=== PATIENT | male | born 1985 | race Two or more races ===

== ENCOUNTER 2024-08-09 21:38 | Emergency (ER) | payer MEDICAID, SELFPAY ==
[2024-08-09 21:56] VITALS: BP 147/99; PULSE 60; RESP 18; TEMP 37.2; O2SAT 99
--- NOTE | 2024-08-09 22:07 | XR_ITS ---
Examination: Abdomen sonogram, Limited Date and time of exam: August 09, 2024 10:25 PM Indications: Onset epigastric pain today, history gallstones Technique: Real-time sprague scale transabdominal sonographic images of the upper abdomen obtained. Findings: Cholelithiasis. Gallbladder wall 0.3 cm Common bile duct 0.5 cm Pancreatic head 2.5 cm Liver 20.5 cm fatty infiltration no focal liver lesions Normal hepatopedal portal venous oh Patent IVC Impression: Cholelithiasis, negative for cholecystitis Moderate hepatomegaly fatty liver
--- NOTE | 2024-08-09 22:07 | PD.EDRME ---
Rapid Medical Screening Exam RME Arrival date/time: 08/09/24 21:38 38 year old male present to ED for c/o of abd pain. hx of gallstones I have greeted and performed a focused initial assessment of this patient. A comprehensive ED assessment and evaluation of the patient, analysis of all test results, and completion of the medical decision making process will be conducted by additional ED providers. Chief Complaint: Abdominal Pain Time Seen by Provider: 08/09/24 21:51 Vital signs: Vital Signs Temperature 99 F 08/09/24 21:56 Pulse Rate 60 08/09/24 21:56 Respiratory Rate 18 08/09/24 21:56 Blood Pressure 147/99 H 08/09/24 21:56 Pulse Oximetry (%) 99 08/09/24 21:56 Oxygen Delivery Method Room Air 08/09/24 21:56
[2024-08-09] MEDS: KETOROLAC INJ 60 MG/2 ML VIAL 30 MG IM (22:17)
[2024-08-09] MEDS: ONDANSETRON ODT 4 MG TABRAP PO (22:18)
[2024-08-09 22:34] LABS: Basophils % (Auto) 1 % (0-2.5); Eosinophils # (Auto) 0.2 Thou/mm3 (0.0-0.5); Eosinophils % (Auto) 3 % (0-10); Hematocrit 45.9 % (41.0-53.0); Immature Granulocytes % (Auto) 0 % (0-0); Immature Granulocytes Auto 0.01 Thou/mm3 (0.00-0.00); Lymphocytes # (Auto) 1.2 Thou/mm3 (1.0-4.8); Lymphocytes % (Auto) 18 % (10-50); Mean Corpuscular HGB Conc 34.9 g/dl (31.0-37.0); Mean Corpuscular Hemoglobin 28.5 pg (25.0-35.0); Mean Corpuscular Volume 82 fL (80-100); Monocytes # (Auto) 0.7 Thou/mm3 (0.0-0.8); Monocytes % (Auto) 10 % (0-12); Neutrophils # (Auto) 4.6 Thou/mm3 (1.8-7.7); Neutrophils % (Auto) 69 % (37-80); Nucleated Red Blood Cell % 0 /100 WBC (0); Platelet Count 271 Thou/mm3 (140-440); RDW Standard Deviation 36.6 fL (35.1-43.9); Red Blood Count 5.62 Miln/mm3 (4.50-5.90); White Blood Count 6.7 Thou/mm3 (3.8-10.6)
--- NOTE | 2024-08-09 22:49 | EDNOTE_ITS ---
ED Abdominal Pain RME/HPI General Chief Complaint: Abdominal Pain Stated complaint: EPIGASTRIC PAIN Time seen by provider: 08/09/24 21:51 Arrival date/time: 08/09/24 21:38 RME / HPI RME / HPI narrative: 08/09/24 21:38 38 year old male present to ED for c/o of abd pain. hx of gallstones I have greeted and performed a focused initial assessment of this patient. A comprehensive ED assessment and evaluation of the patient, analysis of all test results, and completion of the medical decision making process will be conducted by additional ED providers. ------ Dr. Hanson?s Main ED Evaluation: 38yo male presents to the ED for a chief complaint of abdominal pain x this morning. Patient states he developed epigastric pain after eating this morning. Patient states he had one episode of vomiting without any blood or coffee-ground emesis. Patient states he had a hard bowel movement at 1700, reporting his second bowel movement after was more normal. Patient denies any current nausea. He denies any UTI symptoms, fever, chills or any other associated symptoms. No known allergies. Patient states he had similar symptoms 4 years ago, but did not seek treatment for it. Patient notes the injection he was given earlier here in the ED helped with his pain, but states he continues to have epigastric pain. Related Data Allergies Allergy/AdvReac Type Severity Reaction Status Date / Time No Known Allergies Allergy Verified 08/09/24 21:41 Review of Systems Review of Systems Systems Reviewed: All systems reviewed, normal except as documented Narrative Review of Systems: Gen: No fever, no chills, no weight loss EYES: No discharge, no visual changes, no pain HEENT: No ear pain, no congestion, no sore throat PULM: No shortness of breath, no cough, no congestion CV: No chest pain, no dyspnea on exertion, no palpitations GI: No nausea, + vomiting, no diarrhea, + pain, no constipation : No frequency, no urgency, no dysuria Musc/skel: No joint pain, no back pain Skin: No rash Psyc: No hallucinations, no depression Heme/Lymph: No easy bleeding or bruising tendencies Neuro: No weakness, no headache Past Medical History Past Medical History CARDIAC: Negative Congestive Heart Failure RESPIRATORY: Negative Chronic Obstructive Pulmonary Disease (COPD) GENITOURINARY: Negative Renal Disease ENDOCRINE: Negative Diabetes Mellitus Type 1 or Diabetes Mellitus Type 2 Social History SMOKING STATUS: Current every day smoker ED Exam Narrative Physical exam: GENERAL APPEARANCE: alert and oriented x 4, well-developed, well-nourished, no acute distress HEENT: Normocephalic, atraumatic; pupils equal, round, reactive to light; EOMI; mucous membranes pink, moist; oropharynx clear NECK: Supple LUNGS: CTABL; no wheezes, no rales, no rhonchi HEART: Regular rate, regular rhythm; normal S1, S2; no murmurs ABDOMEN: mildly distended; normal BS; soft, mild epigastric pain, no guarding, no rebound; no masses, no organomegaly, no hernia BACK: no CVA tenderness EXTREMITIES: atraumatic; no edema NEUROLOGIC: awake; alert and oriented x4; cranial nerves II-XII grossly intact; no focal sensory or motor deficits PSYCHIATRIC: appropriate mood and affect SKIN: warm, dry, normal color; no rashes Course Quality Measures none Orders Category Date Time Status US abdomen limited Stat Exams 08/09/24 22:07 Completed CBC Stat Lab 08/09/24 22:24 Completed CMP [Comprehensive Metabolic Panel] Stat Lab 08/09/24 22:24 Completed Lipase Stat Lab 08/09/24 22:24 Completed UA [Urinalysis] Stat Lab 08/09/24 22:50 Completed Urine Culture Stat Lab 08/09/24 22:50 Received HYDROcodone*/APAP 5/325 [[place] 5/325] Med 08/09/24 23:16 Discontinued 1 tab PO X1 ONE Ketorolac Inj [Toradol Inj] Med 08/09/24 22:07 Discontinued 30 mg IM X1 ONE Ondansetron Odt [Zofran Odt] Med 08/09/24 22:07 Discontinued 4 mg PO X1 ONE Vital Signs Vital signs: Vital Signs Temperature 99 F 08/09/24 21:56 Pulse Rate 60 08/09/24 21:56 Respiratory Rate 18 08/09/24 21:56 Blood Pressure 147/99 H 08/09/24 21:56 Pulse Oximetry (%) 99 08/09/24 21:56 Oxygen Delivery Method Room Air 08/09/24 21:56 Pulse ox is 99% on room air, which is normal according to my interpretation. Abdominal Pain MDM MDM Narrative MDM Narrative:: Scribe Attestation: 08/09/24 Vaishnavi Reece am scribing for and in the presence of Dr. Hanson. Patient data External records reviewed:: [facility] previous records (Per chart review, patient has no previous ED visits or admissions to this facility.) Clinical information provided by:: patient Social determinants that could affect healthcare access:: none Patient has the following chronic illnesses:: none How is presenting disease/condition affected by chronic disease/condition?: no chronic disease Evaluation data The following diagnostics were reviewed and interpreted by me:: lab results and radiology exam(s) Lab and/or radiology exams considered but not ordered:: none Interpretation Summary: CBC is normal, CMP including LFTs are normal, Lipase is normal, UA is unremarkable, according to my interpretation. --- [facility] Report Signed Patient: ARIELLE LUKE. Record#: [id number] Birthdate: 1985 Age/Sex: 38 / M Location: [facility] Attending Dr: Ordering Physician: Garcia Moreno PA-C Date of Service: 08/09/24 Procedure(s): US abdomen limited Accession Number(s): [id number] cc: Yeyo Chowdhury MD; NO PRIMARY/FAMILY,PHYSICIAN; Garcia Moreno PA-C~ Examination: Abdomen sonogram, Limited Date and time of exam: August 09, 2024 10:25 PM Indications: Onset epigastric pain today, history gallstones Technique: Real-time sprague scale transabdominal sonographic images of the upper abdomen obtained. Findings: Cholelithiasis. Gallbladder wall 0.3 cm Common bile duct 0.5 cm Pancreatic head 2.5 cm Liver 20.5 cm fatty infiltration no focal liver lesions Normal hepatopedal portal venous oh Patent IVC Impression: Cholelithiasis, negative for cholecystitis Moderate hepatomegaly fatty liver Dictated By: Yeyo Chowdhury MD Signed By: <Electronically signed by Yeyo Chowdhury MD in OV> 08/09/24 3037 Medications / Prescriptions Medications or Prescriptions considered but not ordered:: none Medication administrations:: Medication Administration History Discontinued Medications Hydrocodone Bitart/Acetaminophen (Hydrocodone/Apap 5/325 Tablet) 1 tab PO X1 ONE Stop: 08/09/24 23:17 Ketorolac Tromethamine (Ketorolac Inj 60 Mg/2 Ml Vial) 30 mg IM X1 ONE Stop: 08/09/24 22:08 Last Admin: 08/09/24 22:17 Dose: 30 mg Documented By: Ondansetron HCl (Ondansetron Odt 4 Mg Tabrap) 4 mg PO X1 ONE; Protocol Stop: 08/09/24 22:08 Last Admin: 08/09/24 22:18 Dose: 4 mg Documented By: see above Consultations Consultation(s) initiated? (list below): No Diagnosis Differential diagnosis abdominal pain: constipation, diverticulitis, pancreatitis and other (gastritis, cholelithiasis, cholecystitis) Most likely diagnosis given after review of the tests above:: see below Admission Indicated Admission indicated?: not indicated Admission Request Was there a request for admission?: No Disposition Plan Disposition Plan: Discharge Discharge Attestation Discharge Attestation: The patient and all family members were given an opportunity to ask questions and understood the discharge instructions. Discharge instructions specifically effects, indications for sooner follow up or return to the emergency department, and the expected course of current diagnosis. Patient condition: Stable Discharge Plan Plan Patient Disposition: HOME (Self Care) Prescriptions/Referrals Referrals: No Primary/Family,Physician [Primary Care Provider] - In 1 week Problem List Clinical Impression: Epigastric pain, Gallstones Patient/Caregiver Discharge Instructions Education Materials: ED Gallstones with Biliary Colic, ED Epigastric Pain (Uncertain Cause) Print Language: Danish Stand Alone Forms: [facility] Award Info., Patient Portal Info Letter
[2024-08-09 22:57] LABS: Alanine Aminotransferase 46 U/L (10-49); Albumin, Serum 4.9 gm/dL (3.5-5.0); Albumin/Globulin Ratio 1.4 (1.2-2.2); Alkaline Phosphatase 111 U/L (46-116); Anion Gap 7 (7-16); Aspartate Amino Transferase 29 U/L (0-34); BUN/Creatinine Ratio 13 Ratio (12-20); Bilirubin,Total 0.9 mg/dL (0.3-1.2); Blood Urea Nitrogen 10 mg/dL (9-23); Calcium 9.9 mg/dL (8.3-10.6); Calcium (Corrected) 9.9 mg/dL (8.5-10.1); Carbon Dioxide 28.2 mMol/L (20.0-31.0); Chloride 102 mMol/L (98-107); Creatinine (Component) 0.8 mg/dL (0.6-1.3); Globulin 3.5 gm/dL (2.3-3.5); Glucose 126 mg/dL (74-106); Lipase 29 U/L (12-53); Osmolality,Calculated 274 (275-295); Potassium 3.9 mMol/L (3.4-5.1); Sodium 137 mMol/L (136-145); Total Protein 8.4 gm/dL (5.7-8.2); eGFR > 60 See Note
[2024-08-09 22:58] LABS: Collection Type, Urine Voided; Squamous Epithelial Cell,Urine 0 /hpf (0-5)
[2024-08-09 23:15] LABS: Bilirubin,Urine Negative (Negative); Blood,Urine Negative (Negative); Clarity,Urine Clear (Clear/Hazy); Color,Urine Lt-Yellow (Lt Yel-Yel); Glucose, Urine Negative (Negative); Ketones,Urine Negative (Negative); Leukocyte Esterase,Urine Negative (Negative); Nitrite,Urine Negative (Negative); Protein,Urine Negative (Neg - Trace); RBC,Urine 3 /hpf (0-3); Specific Gravity,Urine 1.025 (1.001-1.035); Urobilinogen,Urine Negative mg/dL (0.0-1.0); WBC,Urine < 1 /hpf (0-5)
[2024-08-09] MEDS: HYDROcodone/APAP 5/325 TABLET 1 TAB PO (23:33)
[2024-08-09 23:34] VITALS: BP 138/76; PULSE 79; RESP 18; TEMP 36.6; O2SAT 100
== END 2024-08-09 23:37 | disposition home or self-care (01) ==
PROVIDERS: Physician Assistant; Emergency Provider Emergency Medicine
DX: K80.20 Calculus of gallbladder without cholecystitis without obstruction (principal)
CPT/HCPCS: 36415; 76705; 80053; 81001; 83690; 85025; 87086; 96372; 99284; J1885; Q0162; A9270

== ENCOUNTER 2024-08-10 06:44 | Inpatient (IN) | payer MEDICAID, SELFPAY ==
[2024-08-10] VITALS (17 sets, daily range): BP systolic 124–163; BP diastolic 71–103; PULSE 61–121; RESP 15–26; TEMP 36.2–37.2; O2SAT 93–99; BMI 26.6; BMI 27.2
--- NOTE | 2024-08-10 07:18 | EDNOTE_ITS ---
ED Abdominal Pain MACKENZIE/HPI General Chief Complaint: Abdominal Pain Stated complaint: ABD PAIN Time seen by provider: 08/10/24 07:11 Arrival date/time: 08/10/24 06:44 38-year-old male with past medical history of gallstones presents emergency department complaining of right upper quadrant abdominal pain with vomiting that is been ongoing since yesterday. Patient reports was seen in the ER yesterday and discharged home but returns today because pain has worsened and not improved. Source: patient Mode of arrival: ambulatory Limitations: no limitations ESTEBANE / HPI MD complaint: abdominal pain Onset (ago): day(s) Consistency: constant Location: RUQ Severity: severe Severity scale (1-10): 10 Quality: sharp Radiation: none Migration to: no migration Relieving factors: medication Exacerbating factors: nothing Associated symptoms: nausea and vomiting Treatments prior to arrival: prescription analgesics Related Data Allergies Allergy/AdvReac Type Severity Reaction Status Date / Time No Known Allergies Allergy Verified 08/09/24 21:41 Review of Systems Review of Systems Systems Reviewed: All systems reviewed, normal except as documented Constitutional Constitutional: Reports system reviewed and no additional complaints, except as documented, Denies body ache(s), Denies chills and Denies fever(s) Eyes Eyes: Reports system reviewed and no additional complaints, except as documented and Denies change in vision ENT Ears, Nose, Mouth, and Throat: Reports system reviewed and no additional complaints, except as documented, Denies disequilibrium, Denies dizziness, Denies sore throat and Denies vertigo Cardiovascular Cardiovascular: Reports system reviewed and no additional complaints, except as documented, Denies chest pain and Denies dyspnea Respiratory Respiratory: Reports system reviewed and no additional complaints, except as documented, Denies chest congestion, Denies cough and Denies dyspnea Gastrointestinal Gastrointestinal: Reports system reviewed and no additional complaints, except as documented, Reports abdominal pain, Reports nausea and Reports vomiting Musculoskeletal Musculoskeletal: Reports system reviewed and no additional complaints, except as documented, Denies abnormal gait and Denies arthralgias Integumentary/Breasts Skin/Breast: Reports system reviewed and no additional complaints, except as documented, Denies erythema, Denies rash and Denies wounds Neurologic Neurologic: Reports system reviewed and no additional complaints, except as documented, Denies abnormal gait, Denies disequilibrium, Denies dizziness and Denies vertigo Past Medical History Past Medical History CARDIAC: Negative Congestive Heart Failure RESPIRATORY: Negative Chronic Obstructive Pulmonary Disease (COPD) GENITOURINARY: Negative Renal Disease ENDOCRINE: Negative Diabetes Mellitus Type 1 or Diabetes Mellitus Type 2 Social History SMOKING STATUS: Never smoker ED Exam General Limitations: Present no limitations General appearance: Present alert and in no apparent distress Head Head exam: Present atraumatic Eye Eye exam: Present normal appearance, PERRL and EOMI ENT ENT exam: Present normal exam, normal oropharynx and mucous membranes moist Neck Neck exam: Present normal inspection, full ROM and trachea midline Chest Chest inspection: Present normal inspection and symmetric chest wall rise Respiratory Respiratory exam: Present normal lung sounds bilaterally Cardiovascular Cardiovascular exam: Present regular rate, normal rhythm and normal heart sounds Abdominal Exam Abdominal exam: Present soft, tenderness, guarding, normal bowel sounds and Alvarenga's sign Abdominal tenderness: Present RUQ Extremities Exam Extremities exam: Present normal inspection and full ROM Back Exam Back exam: Present normal inspection and full ROM Neurological Exam Neurological exam: Present alert, oriented X3 and CN II-XII intact Psychiatric Psychiatric exam: Present normal affect and normal mood Skin Skin exam: Present warm, dry, intact and normal color Course Quality Measures none Orders Category Date Time Status COVID-19 Screening Questionnaire NOW Care 08/10/24 11:34 Active Decision to Admit X1 Care 08/10/24 11:34 Active US gall bladder Stat Exams 08/10/24 09:20 Completed CBC Stat Lab 08/10/24 07:54 Completed CMP [Comprehensive Metabolic Panel] Stat Lab 08/10/24 07:54 Completed Lipase Stat Lab 08/10/24 07:54 Completed HYDROcodone/APAP 10/325 [[place] 10/325] Med 08/10/24 07:18 Discontinued 1 tab PO X1 ONE Metoclopramide Inj [Reglan Inj] Med 08/10/24 11:15 Discontinued 10 mg IM X1 ONE Ondansetron Odt [Zofran Odt] Med 08/10/24 07:18 Discontinued 4 mg PO X1 ONE Ondansetron Odt [Zofran Odt] Med 08/10/24 07:25 Discontinued 4 mg PO X1 ONE Vital Signs Vital signs: Vital Signs Temperature 98.5 F 08/10/24 07:06 Pulse Rate 61 08/10/24 07:06 Respiratory Rate 19 08/10/24 07:06 Blood Pressure 132/84 H 08/10/24 07:06 Pulse Oximetry (%) 99 08/10/24 07:06 Oxygen Delivery Method Room Air 08/10/24 07:06 99% room air within normal limits. Abdominal Pain MDM MDM Narrative MDM Narrative:: 38-year-old male with past medical history of gallstones presents emergency department complaining of right upper quadrant abdominal pain with vomiting that is been ongoing since yesterday. Patient reports was seen in the ER yesterday and discharged home but returns today because pain has worsened and not improved. CBC remarkable for leukocytosis 16.6 which was normal yesterdays labs. CMP was unremarkable for any elevated liver enzymes. Ultrasound findings cholelithiasis with enlarged common bile duct. Dr Box consulted and recommends no need for MRCP reports will admit patient for cholecystectomy. Patient is stable condition at time of admission. Patient data External records reviewed:: [facility] previous records Clinical information provided by:: patient Social determinants that could affect healthcare access:: none Patient has the following chronic illnesses:: See chart How is presenting disease/condition affected by chronic disease/condition?: exacerbated by Evaluation data The following diagnostics were reviewed and interpreted by me:: lab results and radiology exam(s) Lab and/or radiology exams considered but not ordered:: Ordered Interpretation Summary: Interpreted by me Medications / Prescriptions Medications or Prescriptions considered but not ordered:: Ordered Medication administrations:: Medication Administration History Discontinued Medications Hydrocodone Bitart/Acetaminophen (Hydrocodone/Apap 10/325 Tab) 1 tab PO X1 ONE Stop: 08/10/24 07:19 Last Admin: 08/10/24 07:29 Dose: 1 tab Documented By: EF Metoclopramide HCl (Metoclopramide Inj 5 Mg/Ml Vial 2 Ml) 10 mg IM X1 ONE; Protocol Stop: 08/10/24 11:16 Last Admin: 08/10/24 11:22 Dose: 10 mg Documented By: EF Ondansetron HCl (Ondansetron Odt 4 Mg Tabrap) 4 mg PO X1 ONE; Protocol Stop: 08/10/24 07:19 Last Admin: 08/10/24 08:52 Dose: Not Given Documented By: EF Non-Admin Reason: Duplicate Medication on eMAR Ondansetron HCl (Ondansetron Odt 4 Mg Tabrap) 4 mg PO X1 ONE; Protocol Stop: 08/10/24 07:26 Last Admin: 08/10/24 07:30 Dose: 4 mg Documented By: EF Given Consultations Consultation(s) initiated? (list below): Yes Consultation #1 (Physician, Specialty, Details): Dr. Box Diagnosis Differential diagnosis abdominal pain: abdominal pain and other (Cholecystitis) Most likely diagnosis given after review of the tests above:: Cholelithiasis Admission Indicated Admission indicated?: not indicated Admission Request Was there a request for admission?: Yes Admission Attestation Admission request attestation: Discussed case with [Dr. Box] from Hospitalist service regarding admission. Discussed patients ED course, exam findings, labs, and radiology results. Dr. Box [agrees,] to accept the patient for admission. Disposition Plan Disposition Plan: Admit Discharge Plan Plan Patient Disposition: Admit Acute Care w/in Hospital Disposition Comment: Stable Prescriptions/Referrals Referrals: Sariah Castelan NP [Primary Care Provider] - In 1 week Problem List Clinical Impression: Cholelithiasis Patient/Caregiver Discharge Instructions Print Language: Welsh Stand Alone Forms: [facility] Award Info., Patient Portal Info Letter PA/PEST CONTROL SERVICE TECHNICIAN Supervising Physician PA/YU Supervising Physician: Dr. Flanagan
[2024-08-10] MEDS: HYDROcodone/APAP 10/325 TAB PO (07:29)
[2024-08-10] MEDS: ONDANSETRON ODT 4 MG TABRAP PO (07:30)
[2024-08-10 08:17] LABS: Basophils # (Auto) 0.1 Thou/mm3 (0.0-0.2); Basophils % (Auto) 0 % (0-2.5); Eosinophils % (Auto) 0 % (0-10); Hematocrit 46.1 % (41.0-53.0); Immature Granulocytes % (Auto) 0 % (0-0); Immature Granulocytes Auto 0.06 Thou/mm3 (0.00-0.00); Lymphocytes # (Auto) 0.6 Thou/mm3 (1.0-4.8); Lymphocytes % (Auto) 4 % (10-50); Mean Corpuscular HGB Conc 34.7 g/dl (31.0-37.0); Mean Corpuscular Hemoglobin 28.9 pg (25.0-35.0); Mean Corpuscular Volume 83 fL (80-100); Monocytes # (Auto) 0.8 Thou/mm3 (0.0-0.8); Monocytes % (Auto) 5 % (0-12); Neutrophils # (Auto) 15.1 Thou/mm3 (1.8-7.7); Neutrophils % (Auto) 91 % (37-80); Nucleated Red Blood Cell % 0 /100 WBC (0); Platelet Count 284 Thou/mm3 (140-440); RDW Standard Deviation 37.3 fL (35.1-43.9); Red Blood Count 5.54 Miln/mm3 (4.50-5.90); White Blood Count 16.6 Thou/mm3 (3.8-10.6)
[2024-08-10 08:34] LABS: Alanine Aminotransferase 45 U/L (10-49); Albumin/Globulin Ratio 1.5 (1.2-2.2); Alkaline Phosphatase 99 U/L (46-116); Anion Gap 7 (7-16); Aspartate Amino Transferase 28 U/L (0-34); BUN/Creatinine Ratio 16 Ratio (12-20); Bilirubin,Total 1.2 mg/dL (0.3-1.2); Blood Urea Nitrogen 13 mg/dL (9-23); Chloride 101 mMol/L (98-107); Creatinine (Component) 0.8 mg/dL (0.6-1.3); Estimated Creatinine Clearance 123.5 mL/min (>60); Globulin 3.3 gm/dL (2.3-3.5); Glucose 139 mg/dL (74-106); Lipase 25 U/L (12-53); Osmolality,Calculated 274 (275-295); Potassium 3.8 mMol/L (3.4-5.1); Sodium 136 mMol/L (136-145); Total Protein 8.3 gm/dL (5.7-8.2); eGFR > 60 See Note
--- NOTE | 2024-08-10 09:20 | XR_ITS ---
Examination: Abdomen sonogram, Limited Date and time of exam: August 10, 2024 0938 hrs. Indications: Right upper abdominal pain and vomiting beginning today Technique: Real-time sprague scale transabdominal sonographic images of the upper abdomen obtained. Findings: Multiple gallstones Gallbladder wall 0.3 cm no edema Common bile duct 0.6 cm no definite stones Pancreatic head 3.0 cm Liver 18.6 cm fatty infiltration no focal liver lesions Normal hepatopedal portal venous flow Patent IVC Impression: Cholelithiasis Enlarged common bile duct for patient of this age, consider MRCP follow-up to exclude common bile duct stones
[2024-08-10] MEDS: METOCLOPRAMIDE INJ 5 MG/ML VIAL 2 ML 10 MG IM (11:22)
--- NOTE | 2024-08-10 11:52 | ESHP_ITS ---
HPI HPI Spoke to patient with in person historical interpreter 38M presenting with abdominal pain and nausea. Patient reports pain began yesterday, he sought care at that time and was discharged with cholelithiasis however because symptoms worsened he returned to ER. Patient reports pain is severe in the epigastric/right upper quadrant region, associated with nausea. Patient states he had similar pain a few years ago but never underwent a workup. Ultrasound shows gallstones, no wall thickening however patient has leukocytosis and his pain has not abated PMH: Pre-DM PSH: None Meds: Naproxen as needed Allergies: NKDA Social history: Non-smoker Review of Systems Review of Systems ROS Unobtainable: All systems reviewed & no additional complaints except as documented ENT Ears, Nose, Mouth, and Throat: Denies disequilibrium, Denies dizziness and Denies vertigo Musculoskeletal Musculoskeletal: Denies abnormal gait Neurologic Neurologic: Reports system reviewed and no additional complaints, except as documented, Denies abnormal gait, Denies disequilibrium, Denies dizziness and Denies vertigo Meds Home Medications and Allergies Allergies Allergy/AdvReac Type Severity Reaction Status Date / Time No Known Allergies Allergy Verified 08/09/24 21:41 Exam Vital Signs Temp Pulse Resp BP Pulse Ox O2 Del Method 98.9 F 78 17 134/79 H 97 Room Air 08/10/24 09:09 08/10/24 09:09 08/10/24 09:09 08/10/24 09:09 08/10/24 09:09 08/10/24 09:09 Constitutional Constitutional: no acute distress Routine Respiratory Exam Respiratory: Present no resp distress Routine Abdominal Exam Abdominal: Present soft and tenderness (Positive Alvarenga sign); Absent distended, rebound or guarding Results Results: Laboratory Laboratory results: results reviewed Results: Imaging US - abdomen: report reviewed Assessment & Plan Plan 38M presenting with signs and symptoms of early acute cholecystitis. I explained benefits/risks of procedure including need for conversion to open, bleeding, infection, injury to nearby structures requiring further procedures or surgery would require transfer to another center. All questions were answered and patient agrees to proceed Quality Measures Quality Measures none
[2024-08-10] MEDS: PIPER/TAZO 3.375 GM 3.375 GM/50 ML BAG IV (12:52)
[2024-08-10] MEDS: SODIUM CHLORIDE 0.9% 1000 ML 1,000 ML 125 ML IV (12:53)
--- NOTE | 2024-08-10 13:15 | PC.NURSE ---
Addendum entered by Ana Tejada RN 08/10/24 13:47: Patient arrived on floor at 13:15 Original Note: Patient arrived on floor at
--- NOTE | 2024-08-10 14:03 | PC.NURSE ---
Patient leaving the floor for surgery. Will admit him when he comes back on the floor.
--- NOTE | 2024-08-10 15:40 | PD.SUROPNT ---
Date of Procedure 08/10/24 Pre Op Diagnosis Early acute cholecystitis Post Op Diagnosis Same Procedure Laparoscopic cholecystectomy Findings Inflamed gallbladder with numerous stones Procedure Description After discussion of risks and benefits, patient was brought to the operating room, SCDs were placed and general anesthesia was induced. He had already received preoperative antibiotics and was prepped and draped in the usual sterile fashion. After timeout a supraumbilical incision was made and the tissues were elevated. A Veress needle was placed through the incision and proper positioning was confirmed with a drop test. At that point the abdomen was insufflated to 15 mmHg. The Veress needle was then exchanged for a 5 mm camera using a Visiport technique. There were no signs of injury from the point of entry. 3 additional ports were placed under direct vision, one 12 mm epigastrium, one 5 mm right subcostal and one 5 mm right anterior axillary line. Patient was placed in reversed Trendelenburg with left side down. The gallbladder was noted to be firm and difficult to grasp so it was first aspirated with return of approximately 100 cc of green bile. The fundus of the gallbladder was then grasped and retracted cephalad and the infundibulum was grasped and retracted laterally. Dissection was undertaken bluntly, it was somewhat difficult given the amount of inflammation and fat encasing the cystic triangle. Ultimately the critical view of safety was achieved and the cystic duct and cystic artery were clipped and transected in the usual fashion. Of note there were was a small accessory artery posterior to the gallbladder which was clipped and transected in the usual fashion. The gallbladder was removed from the gallbladder bed using electrocautery. Hemostasis of the gallbladder bed was achieved with electrocautery and reinforced with Surgicel powder. The specimen was removed in an Endo Catch bag via the epigastric port, and the epigastric fascia was closed with 0 Vicryl suture using a Baltazar-Lana. Pneumoperitoneum was released while the remaining ports were removed under direct vision. Incisions were irrigated and infiltrated with half percent Marcaine for a total of 30 cc. Incisions were closed with 4 Monocryl and reinforced with Dermabond. Patient was extubated and brought to PACU in stable condition Pathology / specimen Other (Gallbladder) Estimated Blood Loss 50 Surgeon Nieves Box MD Surgical Staff Operation Date: 08/10/24 14:15 Case Staff Anesthesiologist: Luis Manuel High RNterra cotta roofer: Claus Neely
--- NOTE | 2024-08-10 15:58 | SUR.PHASEI ---
pt received from OR in recovery bay 1. pt obtunded, breathing labored on 10l oxymask, nasal airway in place. v/s stable. pt dressing to abd dermabond x4 ports cdi. report received from Dr. High and Fred SANTOYO.
[2024-08-10] MEDS: ONDANSETRON INJ 2 MG/ML INJ 2 ML 4 MG IV (16:31)
--- NOTE | 2024-08-10 16:50 | PC.NURSE ---
Patient back on floor from surgery. Will continue to monitor patient.
--- NOTE | 2024-08-10 16:50 | SUR.PHASEII ---
pt asleep but responds to voice, breathing unlabored on 2l nc. v/s stable. pt dressing to abd dermabond x4 cdi. report called to Neida SANTOYO. pt will be transferred to room at this time.
[2024-08-10] MEDS: ACETAMINOPHEN 325 MG TABLET 650 MG PO (19:37)
[2024-08-10] MEDS: HYDROcodone/APAP 5/325 TABLET 1 TAB PO (21:17)
[2024-08-11] VITALS: BP 124/67; PULSE 75; PULSE 96; RESP 18; TEMP 36.6; O2SAT 96
[2024-08-11 04:00] VITALS: BP 127/77; PULSE 77; RESP 18; TEMP 36.6; O2SAT 95
[2024-08-11 06:16] LABS: Basophils % (Auto) 0 % (0-2.5); Eosinophils % (Auto) 0 % (0-10); Hemoglobin 14.2 g/dL (13.5-16.0); Immature Granulocytes % (Auto) 0 % (0-0); Immature Granulocytes Auto 0.06 Thou/mm3 (0.00-0.00); Lymphocytes # (Auto) 0.7 Thou/mm3 (1.0-4.8); Lymphocytes % (Auto) 4 % (10-50); Mean Corpuscular HGB Conc 33.8 g/dl (31.0-37.0); Mean Corpuscular Hemoglobin 28.5 pg (25.0-35.0); Mean Corpuscular Volume 84 fL (80-100); Monocytes # (Auto) 1.3 Thou/mm3 (0.0-0.8); Monocytes % (Auto) 8 % (0-12); Neutrophils # (Auto) 13.9 Thou/mm3 (1.8-7.7); Neutrophils % (Auto) 87 % (37-80); Nucleated Red Blood Cell % 0 /100 WBC (0); Platelet Count 266 Thou/mm3 (140-440); RDW Standard Deviation 38.4 fL (35.1-43.9); Red Blood Count 4.98 Miln/mm3 (4.50-5.90)
[2024-08-11 07:03] LABS: Alanine Aminotransferase 129 U/L (10-49); Albumin, Serum 4.6 gm/dL (3.5-5.0); Albumin/Globulin Ratio 1.5 (1.2-2.2); Alkaline Phosphatase 82 U/L (46-116); Anion Gap 10 (7-16); Aspartate Amino Transferase 86 U/L (0-34); BUN/Creatinine Ratio 16 Ratio (12-20); Bilirubin,Total 2.4 mg/dL (0.3-1.2); Blood Urea Nitrogen 11 mg/dL (9-23); Calcium 9.9 mg/dL (8.3-10.6); Calcium (Corrected) 9.9 mg/dL (8.5-10.1); Carbon Dioxide 27.7 mMol/L (20.0-31.0); Chloride 100 mMol/L (98-107); Creatinine (Component) 0.7 mg/dL (0.6-1.3); Estimated Creatinine Clearance 136.4 mL/min (>60); Glucose 130 mg/dL (74-106); Magnesium 1.8 mg/dL (1.6-2.6); Osmolality,Calculated 277 (275-295); Phosphorous 3.8 mg/dL (2.4-5.1); Potassium 3.6 mMol/L (3.4-5.1); Sodium 138 mMol/L (136-145); Total Protein 7.6 gm/dL (5.7-8.2); eGFR > 60 See Note
[2024-08-11 08:00] VITALS: BP 123/63; PULSE 72; RESP 17; TEMP 36.8; O2SAT 97
[2024-08-11] MEDS: HYDROcodone/APAP 5/325 TABLET 1 TAB PO (09:48)
[2024-08-11] MEDS: SODIUM CHLORIDE 0.9% 1000 ML 1,000 ML 80 ML IV (09:49)
[2024-08-11 12:00] VITALS: BP 136/63; PULSE 79; RESP 17; TEMP 36.6; O2SAT 94
--- NOTE | 2024-08-11 13:12 | PD.SURPROG ---
Documentation for date of: 08/11/24 Subjective Subjective Brief History: Spoke to patient with in person sign language interpreter 38M presenting with abdominal pain and nausea. Patient reports pain began yesterday, he sought care at that time and was discharged with cholelithiasis however because symptoms worsened he returned to ER. Patient reports pain is severe in the epigastric/right upper quadrant region, associated with nausea. Patient states he had similar pain a few years ago but never underwent a workup. Ultrasound shows gallstones, no wall thickening however patient has leukocytosis and his pain has not abated PMH: Pre-DM PSH: None Meds: Naproxen as needed Allergies: NKDA Social history: Non-smoker Narrative: Spoke to patient with phone sign language interpreter Patient reports feeling well, overall he has minimal pain which is controlled with medications. He denies nausea, tolerating liquid diet. T. bili 2.4 from 1.2, MRCP pending Exam Vital Signs Temp Pulse Resp BP Pulse Ox O2 Del Method O2 Flow Rate 97.8 F 79 17 136/63 H 94 L Room Air 1 08/11/24 12:00 08/11/24 12:00 08/11/24 12:00 08/11/24 12:00 08/11/24 12:00 08/11/24 12:00 08/11/24 08:00 Constitutional Constitutional: no acute distress Routine Respiratory Exam Respiratory: Present no resp distress Routine Abdominal Exam Abdominal: Present soft and wound (Incisions clean dry intact, no erythema or fluctuance); Absent tenderness or distended Results Results: Laboratory Laboratory results: results reviewed Assessment & Plan Plan 38M who presented with signs and symptoms of early acute cholecystitis, status post lap cheko 08/10, with increase in bilirubin awaiting MRCP FLD N.p.o. after midnight for MRCP Trend LFTs Procedures Procedures Laparoscopic cholecystectomy
--- NOTE | 2024-08-11 13:18 | PC.SS ---
Gautam Cueto is a 38-year-old male admitted to [facility] for Acute Ally. SS conducted bedside contact with the patient to complete initial assessment and to discuss discharge planning. Patient confirmed demographic information. Patient identifies his Deana Lindo [phone] as his surrogate decision maker. Patient resides at home with his and children. Pt states he is able to complete all ADL?s independently, no need for any source of DME. Pts PCP is Dr. Diaz at [facility] on [address] and pharmacy of choice is [email or web address]. DC option discussed and pt wishes to return home. Pts will provide transportation upon DC. No further intervention required at this time, health care social worker would be available to address any further concerns.
[2024-08-11 16:00] VITALS: BP 138/80; PULSE 90; RESP 16; TEMP 36.6; O2SAT 93
--- NOTE | 2024-08-11 16:18 | PC.SS ---
Rounding: Pending MRCP
[2024-08-11] MEDS: ACETAMINOPHEN 325 MG TABLET 650 MG PO (18:46)
[2024-08-11 20:00] VITALS: BP 138/78; PULSE 86; RESP 16; TEMP 37; O2SAT 92
[2024-08-12] VITALS: BP 130/76; PULSE 91; RESP 16; TEMP 36.3; O2SAT 94
--- NOTE | 2024-08-12 | XR_ITS ---
MRI abdomen, without contrast. MRCP Date and time of exam: August 12, 2024 1646 hrs. Indications: Postop cholecystectomy with worsening abdominal pain Technique: Multiple axial and coronal images of the abdomen have been obtained with the Siemens 1.5T MRI scanner. Images obtained included T1 weighted transverse images, T2-weighted transverse images, T2-weighted transverse images fat-suppressed, T2 weighted haste fat suppressed transverse images, T1 weighted images, in and out of phase images, T2-weighted coronal images, breath hold, T2 weighted haze coronal images as well as T2 weighted coronal thick slab images, MRCP. Findings: Substantial fluid collection in the gallbladder fossa, at least 9 x 6 x 5 mm contiguous with the cystic duct No common hepatic or common bile duct stones Negative for pancreatitis No hydronephrosis Aorta normal size No splenomegaly Impression: Findings most consistent with biliary leak Recommend HIDA scan follow-up
[2024-08-12] MEDS: ACETAMINOPHEN 325 MG TABLET 650 MG PO ×2 (00:34→20:10)
[2024-08-12 04:00] VITALS: BP 139/74; PULSE 83; RESP 16; TEMP 36.4; O2SAT 93
[2024-08-12 05:51] LABS: Basophils % (Auto) 0 % (0-2.5); Eosinophils # (Auto) 0.1 Thou/mm3 (0.0-0.5); Eosinophils % (Auto) 1 % (0-10); Hematocrit 41.3 % (41.0-53.0); Immature Granulocytes % (Auto) 0 % (0-0); Immature Granulocytes Auto 0.03 Thou/mm3 (0.00-0.00); Lymphocytes # (Auto) 1.1 Thou/mm3 (1.0-4.8); Lymphocytes % (Auto) 12 % (10-50); Mean Corpuscular HGB Conc 33.9 g/dl (31.0-37.0); Mean Corpuscular Hemoglobin 28.5 pg (25.0-35.0); Mean Corpuscular Volume 84 fL (80-100); Monocytes % (Auto) 10 % (0-12); Neutrophils # (Auto) 7.4 Thou/mm3 (1.8-7.7); Neutrophils % (Auto) 77 % (37-80); Nucleated Red Blood Cell % 0 /100 WBC (0); Platelet Count 239 Thou/mm3 (140-440); RDW Standard Deviation 38.5 fL (35.1-43.9); Red Blood Count 4.91 Miln/mm3 (4.50-5.90); White Blood Count 9.6 Thou/mm3 (3.8-10.6)
[2024-08-12 06:44] LABS: Alanine Aminotransferase 97 U/L (10-49); Albumin, Serum 4.4 gm/dL (3.5-5.0); Albumin/Globulin Ratio 1.5 (1.2-2.2); Alkaline Phosphatase 85 U/L (46-116); Anion Gap 9 (7-16); Aspartate Amino Transferase 49 U/L (0-34); BUN/Creatinine Ratio 16 Ratio (12-20); Bilirubin,Total 2.7 mg/dL (0.3-1.2); Blood Urea Nitrogen 11 mg/dL (9-23); Calcium 9.6 mg/dL (8.3-10.6); Calcium (Corrected) 9.6 mg/dL (8.5-10.1); Carbon Dioxide 28.9 mMol/L (20.0-31.0); Chloride 99 mMol/L (98-107); Creatinine (Component) 0.7 mg/dL (0.6-1.3); Estimated Creatinine Clearance 136.4 mL/min (>60); Globulin 2.9 gm/dL (2.3-3.5); Glucose 110 mg/dL (74-106); Osmolality,Calculated 274 (275-295); Potassium 3.6 mMol/L (3.4-5.1); Sodium 137 mMol/L (136-145); Total Protein 7.3 gm/dL (5.7-8.2); eGFR > 60 See Note
[2024-08-12 07:46] VITALS: BP 136/79; PULSE 90; RESP 18; TEMP 36.6; O2SAT 92
[2024-08-12 12:00] VITALS: BP 132/72; PULSE 78; RESP 18; TEMP 37.3; O2SAT 92
[2024-08-12] MEDS: SODIUM CHLORIDE 0.9% 1000 ML 1,000 ML 80 ML IV (12:41)
[2024-08-12] MEDS: KETOROLAC INJ 30 MG/ML VIAL 15 MG IVP (15:57)
[2024-08-12 16:00] VITALS: BP 134/77; PULSE 81; RESP 19; TEMP 36.7; O2SAT 96
--- NOTE | 2024-08-12 16:51 | ESPR_ITS ---
Documentation for date of: 08/12/24 Subjective Subjective Brief History: Spoke to patient with in person registered midwife 38M presenting with abdominal pain and nausea. Patient reports pain began yesterday, he sought care at that time and was discharged with cholelithiasis however because symptoms worsened he returned to ER. Patient reports pain is severe in the epigastric/right upper quadrant region, associated with nausea. Patient states he had similar pain a few years ago but never underwent a workup. Ultrasound shows gallstones, no wall thickening however patient has leukocytosis and his pain has not abated PMH: Pre-DM PSH: None Meds: Naproxen as needed Allergies: NKDA Social history: Non-smoker Narrative: Tbili 2.7 from 2.4, remaining afebrile, mild RUQ pain radiating to back controlled with medications, no nausea, MRCP pending Exam Vital Signs Temp Pulse Resp BP Pulse Ox O2 Del Method O2 Flow Rate 98.1 F 81 19 134/77 H 96 Nasal Cannula 1 08/12/24 16:00 08/12/24 16:00 08/12/24 16:00 08/12/24 16:00 08/12/24 16:00 08/12/24 16:00 08/12/24 16:00 Constitutional Constitutional: no acute distress Routine Respiratory Exam Respiratory: Present no resp distress Results Results: Laboratory Laboratory results: results reviewed Assessment & Plan Plan 38M who presented with signs and symptoms of early acute cholecystitis, status post lap cheko 08/10, with increase in bilirubin awaiting MRCP F/u MRCP, trend LFTs Resume FLD after MRCP Procedures Procedures Laparoscopic cholecystectomy
[2024-08-12 20:00] VITALS: BP 119/76; PULSE 88; RESP 18; TEMP 36.8; O2SAT 92
[2024-08-13] VITALS: BP 132/84; PULSE 76; RESP 18; TEMP 36.6; O2SAT 93
[2024-08-13] MEDS: KETOROLAC INJ 30 MG/ML VIAL 15 MG IVP (01:18)
[2024-08-13] MEDS: SODIUM CHLORIDE 0.9% 1000 ML 1,000 ML 80 ML IV (02:12)
[2024-08-13 04:00] VITALS: BP 132/81; PULSE 60; RESP 18; TEMP 36.6; O2SAT 96
[2024-08-13 06:10] LABS: Basophils % (Auto) 0 % (0-2.5); Eosinophils # (Auto) 0.3 Thou/mm3 (0.0-0.5); Eosinophils % (Auto) 3 % (0-10); Hematocrit 41.3 % (41.0-53.0); Immature Granulocytes % (Auto) 0 % (0-0); Immature Granulocytes Auto 0.03 Thou/mm3 (0.00-0.00); Lymphocytes # (Auto) 0.9 Thou/mm3 (1.0-4.8); Lymphocytes % (Auto) 12 % (10-50); Mean Corpuscular HGB Conc 33.9 g/dl (31.0-37.0); Mean Corpuscular Hemoglobin 28.3 pg (25.0-35.0); Mean Corpuscular Volume 84 fL (80-100); Monocytes # (Auto) 0.9 Thou/mm3 (0.0-0.8); Monocytes % (Auto) 12 % (0-12); Neutrophils # (Auto) 5.7 Thou/mm3 (1.8-7.7); Neutrophils % (Auto) 73 % (37-80); Nucleated Red Blood Cell % 0 /100 WBC (0); Platelet Count 235 Thou/mm3 (140-440); RDW Standard Deviation 36.9 fL (35.1-43.9); Red Blood Count 4.94 Miln/mm3 (4.50-5.90); White Blood Count 7.8 Thou/mm3 (3.8-10.6)
[2024-08-13 06:45] LABS: Alanine Aminotransferase 68 U/L (10-49); Albumin/Globulin Ratio 1.3 (1.2-2.2); Alkaline Phosphatase 91 U/L (46-116); Anion Gap 9 (7-16); Aspartate Amino Transferase 30 U/L (0-34); BUN/Creatinine Ratio 19 Ratio (12-20); Bilirubin,Total 2.3 mg/dL (0.3-1.2); Blood Urea Nitrogen 13 mg/dL (9-23); Calcium 9.5 mg/dL (8.3-10.6); Calcium (Corrected) 9.5 mg/dL (8.5-10.1); Carbon Dioxide 27.5 mMol/L (20.0-31.0); Chloride 101 mMol/L (98-107); Creatinine (Component) 0.7 mg/dL (0.6-1.3); Estimated Creatinine Clearance 136.4 mL/min (>60); Glucose 101 mg/dL (74-106); Osmolality,Calculated 273 (275-295); Potassium 3.8 mMol/L (3.4-5.1); Sodium 137 mMol/L (136-145); eGFR > 60 See Note
--- NOTE | 2024-08-13 07:01 | XR_ITS ---
Examination: KUSHAL, hepatobiliary radioisotope scan. Date and time of exam: August 13, 2024 0911 hours INDICATIONS: Status post cholecystectomy, abdominal pain, fluid collection in the gallbladder fossa on MRCP August 12, 2024 Technique: 6.4 mCi of 99M Hepatolite administered. Serial imaging then obtained from immediate through 60 minutes. Findings: Radioisotope activity within the liver is reasonably homogenous. Common bile duct small bowel activity noted Impression: Negative for biliary leak Radioisotope activity common bile duct and small bowel
[2024-08-13 07:40] VITALS: BP 135/78; PULSE 74; RESP 18; TEMP 37; O2SAT 96
[2024-08-13 11:37] VITALS: BP 135/77; PULSE 91; RESP 18; TEMP 36.8; O2SAT 94
[2024-08-13] MEDS: ACETAMINOPHEN 325 MG TABLET 650 MG PO (13:38)
--- NOTE | 2024-08-13 15:44 | ESDS_ITS ---
Planned Discharge Date 08/13/24 DS: Providers Provider Date of admission: 08/11/24 07:26 Primary care physician: Sariah Castelan NP Admitting Provider: Nieves Box MD Attending Provider on Admission: Nieves Box MD Attending Provider on DC: Nieves Box MD Discharging Provider: Nieves Box MD Diagnosis Discharge Diagnosis (1) Acute cholecystitis: Status: Acute Problem List Completed Was Problem List Reviewed/Reconciled?: Yes Hospital Course Brief History: Spoke to patient with in person metal drawer 38M presenting with abdominal pain and nausea. Patient reports pain began yesterday, he sought care at that time and was discharged with cholelithiasis however because symptoms worsened he returned to ER. Patient reports pain is severe in the epigastric/right upper quadrant region, associated with nausea. Patient states he had similar pain a few years ago but never underwent a workup. Ultrasound shows gallstones, no wall thickening however patient has leukocytosis and his pain has not abated PMH: Pre-DM PSH: None Meds: Naproxen as needed Allergies: NKDA Social history: Non-smoker Pt underwent laparoscopic cholecystectomy 08/10. Postoperatively he was noted to have hyperbilirubinemia and remained hospitalized for biliary workup which was negative for biliary injury. Pt recovered well with pain controlled, remaining afebrile and tolerating diet, now appropriate for discharge home Exam Vital Signs Temp Pulse Resp BP Pulse Ox O2 Del Method O2 Flow Rate 98.3 F 91 18 135/77 H 94 L Nasal Cannula 1 08/13/24 11:37 08/13/24 11:37 08/13/24 11:37 08/13/24 11:37 08/13/24 11:37 08/13/24 11:37 08/13/24 11:37 Constitutional Constitutional: no acute distress Routine Respiratory Exam Respiratory: Present no resp distress Routine Abdominal Exam Abdominal: Present soft; Absent tenderness or distended Discharge Plan Plan Patient Disposition: HOME (Self Care) Disposition Comment: Stable Prescriptions/Referrals Prescriptions/Med Rec: New oxycodone-acetaminophen [Percocet] 5-325 mg tablet 1 tab PO Q6H MDD 6 tabs PRN (Reason: pain) Qty: 10 0RF Referrals: Nieves Box MD [Physician] - (You will receive a phone call to confirm a follow-up appt with me in 2 weeks) Sariah Castelan, HOLA [Primary Care Provider] - In 1 week Patient/Caregiver Discharge Instructions Other Discharge Activity Instructions:: Avoid lifting objects >10lbs for 6 weeks You may resume showering Otherwise keep incisions clean and dry If you develop worsening pain, nausea/vomiting or fever please seek care in ER Your stitches will not need to be removed Education Materials: After Gallbladder Surgery Print Language: Polish Stand Alone Forms: Whitney Award Info., Patient Portal Info Letter Discharge Order Discharge Orders: Discharge (Routine); Ordered 08/13/24 Ordered By: Nieves Box Results Results: Laboratory Laboratory results: results reviewed Results: Imaging Imaging narrative: ROSEANNE FATIMA reviewed Procedures Procedure Date 08/10/24 Procedures Laparoscopic cholecystectomy
[2024-08-13 15:54] VITALS: BP 126/73; PULSE 81; RESP 18; TEMP 37.1; O2SAT 94
== END 2024-08-13 17:03 | disposition home or self-care (01) | DRG 263 ==
LOC: SERX 11:46 → S2EX 12:09 → S3SX 08-12 09:37 → S2EX 08-13 07:02
PROVIDERS: Admitting Provider Surgery; Emergency Provider Emergency Medicine; PCP Registered Nurse; Referring Provider Surgery; Visit Provider Surgery
PROC: 0FT44ZZ Resection of Gallbladder, Percutaneous Endoscopic Approach (ICD-10-PCS; CPT 47562; principal; 2024-08-10 14:00)
DX: K80.00 Calculus of gallbladder with acute cholecystitis without obstruction (principal); R73.03 Prediabetes
CPT/HCPCS: 36415; 76705; 78227; 80053; 83690; 83735; 84100; 85025; 96372; 99285; A4217; A4649; A9537; J0131; J1100; J1885; J2250; J2405; J2543; J2704; J2765; J3010; J3490; J7030; P9045; Q0162; S8037; 74181; A9270; J1596

== ENCOUNTER 2024-08-20 02:21 | Inpatient (IN) | payer MEDICAID, SELFPAY ==
[2024-08-20] VITALS (18 sets, daily range): BP systolic 99–173; BP diastolic 51–79; PULSE 64–112; RESP 13–24; TEMP 36.2–39.6; O2SAT 93–98; BMI 26.9
--- NOTE | 2024-08-20 02:34 | PD.EDRME ---
Rapid Medical Screening Exam RME Arrival date/time: 08/20/24 02:21 38-year-old male with past medical history recent cholecystectomy presents emergency department complaining of abdominal pain that started last night. Chief Complaint: Abdominal Pain Time Seen by Provider: 08/20/24 02:41 Vital signs: Vital Signs Temperature 98.4 F 08/20/24 02:31 Pulse Rate 98 08/20/24 02:31 Respiratory Rate 24 H 08/20/24 02:31 Blood Pressure 173/71 H 08/20/24 02:31 Pulse Oximetry (%) 98 08/20/24 02:31 Oxygen Delivery Method Room Air 08/20/24 02:31 Vital signs reviewed by provider: Yes
--- NOTE | 2024-08-20 02:39 | XR_ITS ---
Examination: CT abdomen with intravenous contrast CT pelvis with intravenous contrast 2-D coronal reconstructions 2-D sagittal reconstructions Date and time of exam:August 20, 2024 0320 hrs. Indications: Status post cholecystectomy August 17, 2024 with onset abdominal pain today. CTDI: vol (mGy) 6.98 DLP: (mGycm) 453 Technique: Multiple axial sections of the abdomen and pelvis have been obtained. 64 slice high-resolution scanner used. 3 mm axial sections have been obtained, post intravenous injection 60 cc [id number] 2-D sagittal, coronal reconstructions obtained. Low dose protocols were performed. One or more of the following dose reduction techniques were used; automated exposure control, adjustment of the mA and/or KV according to patient size, use of iterative reconstruction technique. Findings: Air fluid collection in the gallbladder fossa, 8 x 5 x 4 cm, pneumoperitoneum Bibasilar pneumonia Diffuse fatty infiltration throughout the liver Spleen is not enlarged No pancreatic mass No hydronephrosis Mild diffuse increased radiodensity in the peritoneal fat Diffuse thickening of the trujillo of the colon and small bowel in the right abdomen which may be reactive No bowel obstruction Minimal free fluid in the abdomen and mild free fluid in the pelvis Urinary bladder intact Impression: 8 x 5 x 4 cm air-fluid collection in the gallbladder fossa consider gallbladder abscess Mild diffuse increased radiodensity in the peritoneal fat, consider peritonitis Diffuse thickening of the trujillo of the colon and small bowel in the right abdomen which may be reactive to the patient's infectious process in the upper right abdomen, clinical correlation advised
[2024-08-20] MEDS: MORPHINE SULF INJ 10 MG/ML VIAL 4 MG IVP (02:44)
[2024-08-20] MEDS: ONDANSETRON INJ 2 MG/ML INJ 2 ML 4 MG IV (02:49)
--- NOTE | 2024-08-20 03:17 | PC.NURSE ---
Pt taken to CT via wheelchair
--- NOTE | 2024-08-20 03:19 | PD.EDABDPN ---
ED Abdominal Pain RME/HPI General Chief Complaint: Abdominal Pain Stated complaint: ABD PAIN Time seen by provider: 08/20/24 02:41 Arrival date/time: 08/20/24 02:21 Source: patient and family Mode of arrival: ambulatory Limitations: no limitations RME / HPI RME / HPI narrative: 08/20/24 02:21 38-year-old male with past medical history recent cholecystectomy presents emergency department complaining of abdominal pain that started last night. MD complaint: abdominal pain Onset (ago): day(s) (1) Location: diffuse (mid abdomin) Severity: moderate Severity scale (1-10): 10 Quality: cramping Radiation: none Migration to: no migration Relieving factors: other (drank liquids and soup, chicken) Associated symptoms: other (no fers, +nausea) Related Data Previous Rx's ?Medication ?Instructions ?Recorded oxycodone-acetaminophen 5 mg-325 1 tab PO Q6H PRN pain #10 tabs 08/13/24 mg tablet (Percocet) Allergies Allergy/AdvReac Type Severity Reaction Status Date / Time No Known Allergies Allergy Verified 08/20/24 02:24 Review of Systems Review of Systems Systems Reviewed: All systems reviewed, normal except as documented Narrative Review of Systems: Gen: No fevers, felt tremulous today EYES: No discharge, no visual changes, no pain HEENT: No ear pain, no congestion, no sore throat PULM: + shortness of breath, no cough, no congestion CV: No chest pain, no dyspnea on exertion, no palpitations GI:+ nausea, no vomiting, no diarrhea, + passing gas, mid abdomen pain : No frequency, no urgency, no dysuria Musc/skel: No joint pain, no back pain Skin: No rash Past Medical History Family History OTHER FAMILY HX: Denies Surgical History OTHER SURGICAL HX: Denies Social History SOCIAL: Non-smoker Past Medical History Comments PMH COMMENT: No known drug allergies ED Exam Narrative Physical exam: GEN. APPEARANCE: The patient is alert awake oriented X-3 in no distress, lying down comfortably, does not look ill/toxic. Patient has good eye contact. Patient is cooperative. VITALS: All vitals were reviewed and 95% on 2 L. This is an abnormal interpretation. HEENT: Normocephalic, atraumatic. Pupils are equal and reactive. Oral mucosa is moist. Patent Nares NECK: Supple, nontender, no thyromegaly, no meningismus, no JVD, no step offs CHEST: Symmetrical, atraumatic, and with equal expansion , Nontender on palpation no deformity and no crepitus. CARDIOVASCULAR: Heart regular rhythm no murmur or gallop rub or extra beats. LUNGS: Equal breath sounds no laboring tachypnea or wheezing. No intercostal subcostal retraction. No rales and no rhonchi. ABDOMEN: Nondistended, 4 separate trocar sites noted on the mid abdomen that are show no redness or discharge. No distention. Abdomen soft. EXTREMITIES: Nontender. No edema. No cyanosis. Patient is able to move all 4 extremities well, with full ROM. There is pedal edema at bilateral ankles. SKIN: Warm and dry, no jaundice or rashes noted. No pallor. MUSCULOSKELETAL: No lumbar or midline bony tenderness. There is no CVA tenderness. No paraspinal muscle spasm or tenderness. NEURO: Patient is العلي x 4, patient talking in full sentences there is no focal neurologic deficits noted. GCS is 15, moving all extremities General Limitations: Present no limitations Course Course Course Narrative: CT scan is ordered. Antinausea ordered. Pain meds if needed. 0343: Sepsis alert initiated. Patient meets the following SIRS criteria: 103, HR 8, RR 24, WBC P. Orders made at this time are congruent with ED Adult Sepsis Order List. Re-evaluation is to be completed following the administration of IV fluids. Will await antibiotics until CT scan is read. Sepsis reassessment performed consisting of lab review, vitals, physical exam including auscultation of heart, lungs, and visual evaluation of capillary refills, mucosal membranes and extremities. Quality Measures none Orders Category Date Time Status CT Screening NOW Care 08/20/24 02:39 Active Insert IV NOW Care 08/20/24 02:[address] abdomen pelvis w con Stat Exams 08/20/24 02:39 Taken Blood Culture (Lab) Stat Lab 08/20/24 03:57 Received CBC Stat Lab 08/20/24 04:02 Completed CMP [Comprehensive Metabolic Panel] Stat Lab 08/20/24 04:02 Results Lactic Acid [Lactate (Lactic Acid)] Stat Lab 08/20/24 04:02 Completed Lipase Stat Lab 08/20/24 04:02 Results Procalcitonin Stat Lab 08/20/24 04:02 Results Urinalysis, C/S if Indicated Stat Lab 08/20/24 03:43 Completed Urine Culture Stat Lab 08/20/24 03:43 Received Acetaminophen Tab [Tylenol ES Tab] Med 08/20/24 04:00 Discontinued 1,000 mg PO X1 ONE Acetaminophen Tab [Tylenol Tab] Med 08/20/24 03:42 Discontinued 1,000 mg PO X1 ONE Ketorolac Inj [Toradol Inj] Med 08/20/24 03:42 Discontinued 30 mg IVP X1 ONE Morphine Inj Med 08/20/24 02:33 Discontinued 4 mg IVP X1 ONE Ondansetron Inj [Zofran Inj] Med 08/20/24 02:33 Discontinued 4 mg IV X1 ONE Piper/Tazo Inj [Zosyn Inj] 3.375 gm Med 08/20/24 03:51 Discontinued Sodium Chloride 0.9% (P) [Ns 0.9% (P)] 50 ml IV X1 Sodium Chloride 0.9% 1000 ml [Ns] 2,341 ml Med 08/20/24 03:41 Discontinued IV 2,341 mls/hr Vital Signs Vital signs: Vital Signs Temperature 98.4 F 08/20/24 02:31 Pulse Rate 98 08/20/24 02:31 Respiratory Rate 24 H 08/20/24 02:31 Blood Pressure 173/71 H 08/20/24 02:31 Pulse Oximetry (%) 98 08/20/24 02:31 Oxygen Delivery Method Room Air 08/20/24 02:31 Abdominal Pain MDM MDM Narrative MDM Narrative:: 38-year male status post cholecystectomy in the last 7 days. Patient appears in no acute distress. Patient data External records reviewed:: [facility] previous records (Patient with recent acute cholecystectomy by Dr. Box 08/2024) Clinical information provided by:: patient and family Social determinants that could affect healthcare access:: none Patient has the following chronic illnesses:: None How is presenting disease/condition affected by chronic disease/condition?: no chronic disease Evaluation data The following diagnostics were reviewed and interpreted by me:: lab results and radiology exam(s) Lab and/or radiology exams considered but not ordered:: None Interpretation Summary: White count is 10. Hemoglobin 14, hematocrit 42 platelets 305 urine specific gravity 1.0471+ urine protein 8 red cells. Urine bacteria +1. ----- Telerad Preliminary Report Draft Patient: ARIELLE LUKE. Record#: [id number] Birthdate: 1985 Age/Sex: 38 / M Location: [facility] Attending Dr: Ordering Physician: Date of Service: Procedure(s): Accession Number(s): cc: ~ CT scan of the abdomen and pelvis with intravenous contrast (axial sections with sagittal and coronal reformats) August 20, 2024 at 0320 hours Clinical History: Abdominal pain recent cholecystectomy. Comparison: No prior study is available for comparison. Findings: Bibasilar consolidation is seen. There is mild hepatomegaly. The gallbladder is surgically absent. Fluid collection with air loculi in the gallbladder fossa measuring approximately 8.3 x 5.4 x 4.1 cm. The pancreas, spleen, kidneys and adrenals are unremarkable. No evidence of bowel obstruction. The appendix is within normal limits (axial image 165/312). There is mild thickening of the wall of the ascending colon and hepatic flexure. Omental fat stranding is seen. There is no mesenteric or retroperitoneal adenopathy. The urinary bladder is unremarkable. There is free air loculus in the right subdiaphragmatic area (axial image 48/312). There is mild ascites. There are small fat-containing bilateral inguinal hernias. The osseous structures are unremarkable. Impression: 1. Fluid collection with air loculi in the gallbladder fossa measuring approximately 8.3 x 5.4 x 4.1 cm, likely abscess. Recommend clinical correlation. 2. Omental fat stranding. Recommend clinical correlation. 3. Mild ascites. 4. Mild thickening of the wall of the ascending colon and hepatic flexure with pericolonic fat stranding, consistent with colitis, likely of inflammatory etiology. 5. Mild pneumoperitoneum. 6. Bibasilar consolidation. Recommend clinical correlation and follow-up. 7. Other findings as described above. Report Electronically Signed By: Zelalem Verdugo 08/20/2024 4:43:56 AM [EST] Medications / Prescriptions Medications or Prescriptions considered but not ordered:: None Medication administrations:: Medication Administration History Discontinued Medications Acetaminophen (Acetaminophen 325 Mg Tablet) 1,000 mg PO X1 ONE Stop: 08/20/24 03:43 Last Admin: 08/20/24 04:06 Dose: Not Given Documented By: RC Non-Admin Reason: Discontinued Acetaminophen (Acetaminophen 500 Mg Tablet) 1,000 mg PO X1 ONE Stop: 08/20/24 04:01 Last Admin: 08/20/24 04:05 Dose: 1,000 mg Documented By: CCT Sodium Chloride (Ns) 2,341 mls @ 2,341 mls/hr 30 ml/kg infuse over 60 min (2341 ml) IV .Q1H ONE; Protocol Stop: 08/20/24 04:40 Last Infusion: 08/20/24 05:28 Dose: Infused Documented By: Admin: 08/20/24 03:52 Dose: 2,341 mls/hr Documented By: CCT Piperacillin Sod/Tazobactam (Sod 3.375 gm/ Sodium Chloride) 50 mls @ 100 mls/hr IV X1 ONE Stop: 08/20/24 04:20 Last Infusion: 08/20/24 04:40 Dose: Infused Documented By: Admin: 08/20/24 04:05 Dose: 100 mls/hr Documented By: CCT Ketorolac Tromethamine (Ketorolac Inj 30 Mg/Ml Vial) 30 mg IVP X1 ONE Stop: 08/20/24 03:43 Last Admin: 08/20/24 03:51 Dose: 30 mg Documented By: CCT Morphine Sulfate (Morphine Sulf Inj 10 Mg/Ml Vial) 4 mg IVP X1 ONE Stop: 08/20/24 02:34 Last Admin: 08/20/24 02:44 Dose: 4 mg Documented By: SAM Ondansetron HCl (Ondansetron Inj 2 Mg/Ml Inj 2 Ml) 4 mg IV X1 ONE; Protocol Stop: 08/20/24 02:34 Last Admin: 08/20/24 02:49 Dose: 4 mg Documented By: SAM As above Consultations Consultation(s) initiated? (list below): Yes Consultation #1 (Physician, Specialty, Details): Discussed case with [Dr. Box] from [general surgery] regarding [admission]. Discussed patients ED course, exam findings, labs, and radiology results. Accepts the patient for admission. Time: 05:12 Diagnosis Differential diagnosis abdominal pain: abdominal pain, constipation, diverticulitis, gastroenteritis, pancreatitis and other (Postop infection, abscess) Most likely diagnosis given after review of the tests above:: Postop pain Admission Indicated Admission indicated?: indicated Admission Request Was there a request for admission?: Yes Admission Attestation Admission request attestation: Discussed case with [] from Hospitalist service regarding admission. Discussed patients ED course, exam findings, labs, and radiology results. The Hospitalist [agrees,declines] to accept the patient for admission. Disposition Plan Disposition Plan: Admit Critical Care Time Critical Care Time Critical Care Time: Yes Total Critical Care Time (min.): 35 Attestation: The high probability of sudden, clinically significant deterioration in the patient?s condition required the highest level of my preparedness to intervene urgently. The services I provided to this patient were to treat and/or prevent clinically significant deterioration. Services included the following: chart data review, reviewing nursing notes and/or old charts, documentation time, campaign consultant collaboration regarding findings and treatment options, medication orders and management, direct patient care, vital sign assessments and ordering, interpreting and reviewing diagnostic studies and lab tests. Aggregate critical care time includes only time during which I was engaged in work directly related to the patient?s care, as described above, whether at bedside or elsewhere in the Emergency Department. It did not include time spent performing other reported procedures or the services of residents, students, nurses or physician assistants. Discharge Plan Plan Patient Disposition: Admit Acute Care w/in Hospital Patient condition on transfer: Stable Prescriptions/Referrals Prescriptions/Med Rec: No Action oxycodone-acetaminophen [Percocet] 5-325 mg tablet 1 tab PO Q6H MDD 6 tabs PRN (Reason: pain) Qty: 10 0RF Problem List Clinical Impression: Abdominal pain, Sepsis, Post-operative infection Patient/Caregiver Discharge Instructions Print Language: Frisian Stand Alone Forms: Whitney Award Info., Patient Portal Info Letter
[2024-08-20] MEDS: KETOROLAC INJ 30 MG/ML VIAL IVP (03:51)
[2024-08-20] MEDS: SODIUM CHLORIDE 0.9% 2341 ML IV (03:52)
[2024-08-20] MEDS: ACETAMINOPHEN 500 MG TABLET 1000 MG PO (04:05)
[2024-08-20] MEDS: PIPER/TAZO INJ 3.375 GM in SODIUM CHLORIDE 0.9% (P) 50 ML IV (04:05)
[2024-08-20 04:11] LABS: Collection Type, Urine Clean Catch
[2024-08-20 04:12] LABS: Lactate (Lactic Acid) 1.4 mMol/L (0.4-2.0)
[2024-08-20 04:13] LABS: Basophils % (Auto) 0 % (0-2.5); Eosinophils # (Auto) 0.1 Thou/mm3 (0.0-0.5); Eosinophils % (Auto) 1 % (0-10); Hemoglobin 14.4 g/dL (13.5-16.0); Immature Granulocytes % (Auto) 1 % (0-0); Immature Granulocytes Auto 0.05 Thou/mm3 (0.00-0.00); Lymphocytes # (Auto) 0.4 Thou/mm3 (1.0-4.8); Lymphocytes % (Auto) 4 % (10-50); Mean Corpuscular HGB Conc 34.3 g/dl (31.0-37.0); Mean Corpuscular Volume 82 fL (80-100); Monocytes # (Auto) 0.3 Thou/mm3 (0.0-0.8); Monocytes % (Auto) 3 % (0-12); Neutrophils % (Auto) 93 % (37-80); Nucleated Red Blood Cell % 0 /100 WBC (0); Platelet Count 305 Thou/mm3 (140-440); RDW Standard Deviation 35.6 fL (35.1-43.9); Red Blood Count 5.15 Miln/mm3 (4.50-5.90); White Blood Count 10.8 Thou/mm3 (3.8-10.6)
[2024-08-20 04:16] LABS: Bacteria,Urine 1+; Bilirubin,Urine Negative (Negative); Blood,Urine Negative (Negative); Clarity,Urine Clear (Clear/Hazy); Color,Urine Yellow (Lt Yel-Yel); Glucose, Urine Negative (Negative); Hyaline Casts,Urine < 1 /hpf (0-1); Ketones,Urine Negative (Negative); Leukocyte Esterase,Urine Negative (Negative); Nitrite,Urine Negative (Negative); Protein,Urine 1+ (Neg - Trace); RBC,Urine 8 /hpf (0-3); Specific Gravity,Urine 1.047 (1.001-1.035); Squamous Epithelial Cell,Urine < 1 /hpf (0-5); Urobilinogen,Urine Negative mg/dL (0.0-1.0); WBC,Urine 3 /hpf (0-5)
[2024-08-20 04:20] LABS: Culture Indicated,Urine Yes
[2024-08-20 04:37] LABS: Alanine Aminotransferase 44 U/L (10-49); Albumin, Serum 4.6 gm/dL (3.5-5.0); Albumin/Globulin Ratio 1.4 (1.2-2.2); Alkaline Phosphatase 241 U/L (46-116); Anion Gap 7 (7-16); Aspartate Amino Transferase 24 U/L (0-34); BUN/Creatinine Ratio 14 Ratio (12-20); Blood Urea Nitrogen 13 mg/dL (9-23); Calcium 9.6 mg/dL (8.3-10.6); Calcium (Corrected) 9.6 mg/dL (8.5-10.1); Carbon Dioxide 26.7 mMol/L (20.0-31.0); Chloride 98 mMol/L (98-107); Creatinine (Component) 0.9 mg/dL (0.6-1.3); Estimated Creatinine Clearance 111.5 mL/min (>60); Globulin 3.4 gm/dL (2.3-3.5); Glucose 146 mg/dL (74-106); Lipase 25 U/L (12-53); Osmolality,Calculated 267 (275-295); Sodium 132 mMol/L (136-145); eGFR > 60 See Note
--- NOTE | 2024-08-20 04:45 | PRELIM_ITS ---
CT scan of the abdomen and pelvis with intravenous contrast (axial sections with sagittal and coronal reformats) August 20, 2024 at 0320 hoursClinical History: Abdominal pain recent cholecystectomy.Co mparison: No prior study is available for comparison. Findings:Bibasilar consolidation is seen. There is mild hepatomegaly. The gallbladder is surgically absent. Fluid collection with air loculi in the gallbladder fossa measuring approximately 8.3 x 5.4 x 4.1 cm.The pancreas, spleen, kidneys and adrena ls are unremarkable.No evidence of bowel obstruction. The appendix is within normal limits (axial johana ge 165/312). There is mild thickening of the wall of the ascending colon and hepatic flexure.Omental fat stranding is seen.There is no mesenteric or retroperitoneal adenopathy.The urinary bladder is unr emarkable. There is free air loculus in the right subdiaphragmatic area (axial image 48/312). There i s mild ascites. There are small fat-containing bilateral inguinal hernias. The osseous structures are unremarkable.Impression:1. Fluid collection with air loculi in the gallbladder fossa measuring appro ximately 8.3 x 5.4 x 4.1 cm, likely abscess. Recommend clinical correlation. 2. Omental fat stranding . Recommend clinical correlation. 3. Mild ascites.4. Mild thickening of the wall of the ascending col on and hepatic flexure with pericolonic fat stranding, consistent with colitis, likely of inflammator y etiology.5. Mild pneumoperitoneum.6. Bibasilar consolidation. Recommend clinical correlation and fo llow-up. 7. Other findings as described above. Report Electronically Signed By: Zelalem Verdugo 08/20/20 24 4:43:56 AM [EST]
[2024-08-20 06:10] LABS: Procalcitonin 0.14 ng/ml (0.0-0.49)
--- NOTE | 2024-08-20 06:13 | XR_ITS ---
Examination: CT-guided percutaneous placement abscess drainage catheter gallbladder fossa CT abdomen without intravenous contrast Date and time of procedure: March 20, 2024 1048 hours INDICATIONS: Fever abdominal pain postcholecystectomy this week, large abscess in the gallbladder fossa on CT abdomen August 20, 2024 0320 hours Informed consent provided. A timeout was completed verifying correct patient, procedure, site and positioning. Technique: Axial 3 mm sections were obtained for localization of the fluid collection in the gallbladder fossa Appropriate area is marked. The patient's site was prepped and draped in sterile fashion Maximal sterile barrier technique utilized, including hand hygiene Local anesthesia was obtained with 1% lidocaine. Low dose protocols were performed. One or more of the following dose reduction techniques were used; automated exposure control, adjustment of the mA and/or KV according to patient size, use of iterative reconstruction technique. Utilizing CT fluoroscopic guidance successful placement 5 [place] catheter in the gallbladder fossa followed by wire guide dilators and a 10 [place]er abscess drainage catheter in proper position under CT guidance Patient appears in stable condition during this procedure. At completion of the procedure, the patient is in satisfactory condition. Estimated blood loss 2 cc Complete culture and sensitivity report to follow. Impression: Successful CT-guided percutaneous placement abscess drainage catheter in right upper abdomen abscess
[2024-08-20] MEDS: SODIUM CHLORIDE 0.9% 1000 ML 1,000 ML 125 ML IV (06:29)
--- NOTE | 2024-08-20 07:39 | PD.SURHP ---
HPI Date of Admission 08/20/24 06:13 HPI 38M status post lap cheko 08/10 who presented to ER due to pain and nausea. Patient reports yesterday he was having severe periumbilical pain, associated with nausea and fever. In ER patient had temperature up to 103, WBC 10.8, CT showing fluid collection concerning for abscess. Patient reports as of this morning his pain has improved although he still has some nausea and has felt constipated at home Review of Systems Review of Systems ROS Unobtainable: All systems reviewed & no additional complaints except as documented Meds Home Medications and Allergies Allergies Allergy/AdvReac Type Severity Reaction Status Date / Time No Known Allergies Allergy Verified 08/20/24 02:24 Exam Vital Signs Temp Pulse Resp BP Pulse Ox O2 Del Method O2 Flow Rate 100.4 F 93 20 108/52 L 95 Nasal Cannula 2 08/20/24 05:28 08/20/24 05:28 08/20/24 05:28 08/20/24 05:28 08/20/24 05:28 08/20/24 05:28 08/20/24 05:28 Constitutional Constitutional: no acute distress Routine Respiratory Exam Respiratory: Present no resp distress Routine Abdominal Exam Abdominal: Present soft and wound (Incisions clean dry intact, no erythema, no fluctuance or tenderness); Absent tenderness or distended Results Results: Laboratory Laboratory results: results reviewed Results: Imaging CT scan - abdomen: report reviewed and image reviewed Assessment & Plan Plan 38M status post lap cheko 08/10 with findings concerning for gallbladder fossa abscess Percutaneous drainage IV abx Diet after drainage Trend WBC Quality Measures Quality Measures none
[2024-08-20 09:48] LABS: INR 1.1 (0.9-1.3); Partial Thromboplastin Time 22.8 Seconds (22.0-36.0); Prothrombin Time 11.9 Seconds (9.0-12.2)
[2024-08-20] MEDS: fentaNYL CIT INJ 50 mCg/ML AMP 2ML 100 MCG IVP (11:06)
[2024-08-20] MEDS: LIDOCAINE INJ PF 1% 30 ML VIAL 9 ML INFL (11:10)
--- NOTE | 2024-08-20 11:25 | XR_ITS ---
Examination: Abdomen AP single view Technique: AP portable supine abdomen, single view Exam date and time: August 20, 2024 1129 hours INDICATIONS: Post abscess drainage FINDINGS: Abscess drainage catheter in the gallbladder fossa satisfactory position Surgical clips upper right abdomen Bibasilar atelectasis versus pneumonia IMPRESSION: Right upper quadrant abscess drainage catheter satisfactory position
--- NOTE | 2024-08-20 12:03 | PC.NURSE ---
1130 Patient is awake, alert, breathing unlabored, s/p ct guided catheter drainage of gallbladder fossa abscess. drain connected to accordion drainage bag in right upper abdomen. dressing clean, dry and intact. report given to Shirley SANTOYO, patient will be transferred to room 352. KUB ordered and will be done in XRay before transfering patient back to room.
[2024-08-20 12:17] LABS: Cult AFB Sendout- Not Sputum* See Sep Rpt
[2024-08-20] MEDS: HYDROcodone/APAP 5/325 TABLET 1 TAB PO ×2 (12:46→17:10)
[2024-08-20] MEDS: PIPER/TAZO 3.375 GM 3.375 GM/50 ML BAG IV ×2 (14:04→21:08)
[2024-08-20] MEDS: HEPARIN SOD INJ 5000 UNIT/ML VIAL SC (15:08)
--- NOTE | 2024-08-20 17:41 | PC.NURSE ---
Went into pt's room to give [place] PRN for pain. pt temperature 101.1. pt has chills and is shaking. Called Dr. Box and made aware of pt status. MD ordered tylenol for patient fever or mild pain. MD aware of norco administration.
[2024-08-20] MEDS: ACETAMINOPHEN 325 MG TABLET 650 MG PO (17:50)
[2024-08-20] MEDS: KETOROLAC INJ 30 MG/ML VIAL 15 MG IVP (21:10)
[2024-08-21] VITALS (17 sets, daily range): BP systolic 110–138; BP diastolic 66–76; PULSE 78–103; RESP 16–18; TEMP 36.8–38.8; O2SAT 91–97
[2024-08-21] MEDS: ACETAMINOPHEN 325 MG TABLET 650 MG PO ×3 (01:41→16:05)
[2024-08-21] MEDS: HEPARIN SOD INJ 5000 UNIT/ML VIAL SC ×2 (01:48→14:22)
[2024-08-21] MEDS: PIPER/TAZO 3.375 GM 3.375 GM/50 ML BAG IV ×3 (05:47→21:39)
[2024-08-21 05:48] LABS: Basophils % (Auto) 0 % (0-2.5); Eosinophils % (Auto) 0 % (0-10); Hematocrit 36.6 % (41.0-53.0); Hemoglobin 12.4 g/dL (13.5-16.0); Immature Granulocytes % (Auto) 1 % (0-0); Immature Granulocytes Auto 0.14 Thou/mm3 (0.00-0.00); Lymphocytes # (Auto) 0.7 Thou/mm3 (1.0-4.8); Lymphocytes % (Auto) 4 % (10-50); Mean Corpuscular HGB Conc 33.9 g/dl (31.0-37.0); Mean Corpuscular Hemoglobin 28.2 pg (25.0-35.0); Mean Corpuscular Volume 83 fL (80-100); Monocytes # (Auto) 0.5 Thou/mm3 (0.0-0.8); Monocytes % (Auto) 3 % (0-12); Neutrophils # (Auto) 16.9 Thou/mm3 (1.8-7.7); Neutrophils % (Auto) 92 % (37-80); Nucleated Red Blood Cell % 0 /100 WBC (0); Platelet Count 334 Thou/mm3 (140-440); Red Blood Count 4.39 Miln/mm3 (4.50-5.90); White Blood Count 18.4 Thou/mm3 (3.8-10.6)
[2024-08-21 06:15] LABS: Anion Gap 8 (7-16); BUN/Creatinine Ratio 19 Ratio (12-20); Blood Urea Nitrogen 13 mg/dL (9-23); Calcium 9.4 mg/dL (8.3-10.6); Carbon Dioxide 28.2 mMol/L (20.0-31.0); Chloride 97 mMol/L (98-107); Creatinine (Component) 0.7 mg/dL (0.6-1.3); Estimated Creatinine Clearance 143.4 mL/min (>60); Glucose 108 mg/dL (74-106); Osmolality,Calculated 267 (275-295); Potassium 3.7 mMol/L (3.4-5.1); Sodium 133 mMol/L (136-145); eGFR > 60 See Note
[2024-08-21] MEDS: DOCUSATE SOD 100 MG CAPSULE PO (08:42)
--- NOTE | 2024-08-21 10:58 | PD.SURCONS ---
HPI Consult details History of present illness: Yesterday pt underwent percutaneous drain placement, has had 218cc output which is light brown, mild nausea controlled with medications but did have BM. Had fever as recently as this am up to 101, WBC 18 Review of Systems Review of Systems ROS Unobtainable: All systems reviewed & no additional complaints except as documented Meds Home Medications and Allergies Home Medications ?Medication ?Instructions ?Recorded ?Confirmed ?Type No Known Home Medications 08/20/24 08/20/24 History Allergies Allergy/AdvReac Type Severity Reaction Status Date / Time No Known Allergies Allergy Verified 08/20/24 02:24 Exam Vital Signs Temp Pulse Resp BP Pulse Ox O2 Del Method O2 Flow Rate 98.2 F 78 18 121/75 97 Nasal Cannula 2 08/21/24 09:40 08/21/24 07:33 08/21/24 07:33 08/21/24 07:33 08/21/24 07:33 08/21/24 07:33 08/21/24 07:33 Constitutional Constitutional: no acute distress Routine Respiratory Exam Respiratory: Present normal breath sounds Routine Abdominal Exam Abdominal: Present soft, wound (incisions c/d/i) and drain (RUQ drain with light brown output); Absent tenderness or distended Results Results: Laboratory Laboratory results: results reviewed Results: Imaging CT scan - abdomen: report reviewed Assessment & Plan Plan 38M status post lap cheko 08/10 with findings concerning for gallbladder fossa abscess s/p percutaneous drain placement 08/20, with fever and nausea Strict I&O Follow up fluid culture Continue abx
--- NOTE | 2024-08-21 12:33 | PC.NURSE ---
When Dr. Box rounded pt and family requested second opinion. Dr. Box consulted Dr. Berry. Dr. Berry in to see patient and family. Questions asked and answered. No new orders. States continue current plan of care and monitor patient.
[2024-08-21] MEDS: KETOROLAC INJ 30 MG/ML VIAL 15 MG IVP (12:36)
--- NOTE | 2024-08-21 13:04 | PC.NURSE ---
contacted Dr. Box to inform her Dr. Berry came to see the patient. Made her aware that pt's drain may not be suctioning correctly. will come see patient and order xray for comparison with previous xray.
--- NOTE | 2024-08-21 13:05 | XR_ITS ---
EXAMINATION: Abdomen, supine, upright 2 views. Technique: Abdomen AP upright, supine 2 views Date and time of exam: August 21, 2024 at 1346 hours INDICATIONS: Status post placement abscess drainage catheter abscess in the right upper abdomen FINDINGS: The abscess drainage catheter projects in the right upper abdomen it appears slightly retracted compared to the prior study IMPRESSION: Recommend repeat CT abdomen to assess position of abscess drainage catheter
[2024-08-21] MEDS: ONDANSETRON INJ 2 MG/ML INJ 2 ML 4 MG IV (14:21)
--- NOTE | 2024-08-21 14:22 | XR_ITS ---
Examination: CT abdomen and pelvis without contrast. Coronal 3-D reconstructions. Sagittal 2-D reconstructions. Date and time of exam:August 21, 2024 1451 hours Comparison August 20, 2024 INDICATIONS: History fluid collection in the gallbladder fossa post cholecystectomy post drainage catheter placement in the gallbladder fossa this week CTDI: vol (mGy): 7.39 DLP: (mGycm): 453 Technique: Axial images of the abdomen have been obtained, 3 mm slice thickness Intravenous contrast material has not been administered. Low dose protocols were performed. One or more of the following dose reduction techniques were used; automated exposure control, adjustment of the mA and/or KV according to patient size, use of iterative reconstruction technique. Findings: Bibasilar pneumonia Drainage catheter adequate position in the gallbladder fossa smaller fluid collection No new fluid collection No hydronephrosis Aorta normal size No bowel obstruction Small bowel mild ileus Urinary bladder is contracted IMPRESSION: Drainage catheter in adequate position in the gallbladder fossa with smaller fluid collection
[2024-08-21] MEDS: SIMETHICONE 80 MG CHEW PO (19:21)
[2024-08-21] MEDS: HYDROcodone/APAP 5/325 TABLET 1 TAB PO (23:57)
[2024-08-22] VITALS: BP 126/72; PULSE 90; RESP 19; TEMP 37.2; O2SAT 95
[2024-08-22] MEDS: HEPARIN SOD INJ 5000 UNIT/ML VIAL SC ×2 (02:34→14:12)
[2024-08-22 04:00] VITALS: BP 120/74; PULSE 88; RESP 17; TEMP 36.8; O2SAT 96
[2024-08-22] MEDS: PIPER/TAZO 3.375 GM 3.375 GM/50 ML BAG IV ×3 (05:03→21:03)
[2024-08-22 05:31] LABS: Basophils % (Auto) 0 % (0-2.5); Eosinophils # (Auto) 0.2 Thou/mm3 (0.0-0.5); Eosinophils % (Auto) 1 % (0-10); Hematocrit 34.8 % (41.0-53.0); Hemoglobin 11.8 g/dL (13.5-16.0); Immature Granulocytes % (Auto) 1 % (0-0); Lymphocytes # (Auto) 0.7 Thou/mm3 (1.0-4.8); Lymphocytes % (Auto) 4 % (10-50); Mean Corpuscular HGB Conc 33.9 g/dl (31.0-37.0); Mean Corpuscular Hemoglobin 28.1 pg (25.0-35.0); Mean Corpuscular Volume 83 fL (80-100); Monocytes # (Auto) 0.7 Thou/mm3 (0.0-0.8); Monocytes % (Auto) 5 % (0-12); Neutrophils # (Auto) 13.4 Thou/mm3 (1.8-7.7); Neutrophils % (Auto) 89 % (37-80); Nucleated Red Blood Cell % 0 /100 WBC (0); Platelet Count 326 Thou/mm3 (140-440); RDW Standard Deviation 36.3 fL (35.1-43.9)
[2024-08-22] MEDS: ONDANSETRON INJ 2 MG/ML INJ 2 ML 4 MG IV (05:49)
[2024-08-22 06:16] LABS: Anion Gap 9 (7-16); BUN/Creatinine Ratio 14 Ratio (12-20); Blood Urea Nitrogen 11 mg/dL (9-23); Calcium 9.5 mg/dL (8.3-10.6); Carbon Dioxide 29.3 mMol/L (20.0-31.0); Chloride 96 mMol/L (98-107); Creatinine (Component) 0.8 mg/dL (0.6-1.3); Estimated Creatinine Clearance 125.5 mL/min (>60); Glucose 108 mg/dL (74-106); Osmolality,Calculated 268 (275-295); Potassium 3.5 mMol/L (3.4-5.1); Sodium 134 mMol/L (136-145); eGFR > 60 See Note
[2024-08-22 08:00] VITALS: BP 131/70; PULSE 82; RESP 17; TEMP 36.9; O2SAT 90
[2024-08-22] MEDS: DOCUSATE SOD 100 MG CAPSULE PO (08:12)
--- NOTE | 2024-08-22 09:51 | PC.SS ---
Gautam Cueto is a 38-year-old male admitted for Abscess. SS met with patient and patients , Deana at bedside to complete initial assessment and to discuss discharge planning. Patient confirmed demographic information. Patient identifies his Deana Lindo [phone] as his surrogate decision maker. Patient resides at home with his and children. Patient reports he is able to complete all ADL?s independently and does not utilize any souce of DME to assist with ambulation. Pts PCP is Dr. Diaz at [facility] on [address] and pharmacy of choice is [facility]. At time of discharge patient will return home. Next of Kin:, Deana Valdez Discharge plan: home
[2024-08-22 12:00] VITALS: BP 134/78; PULSE 80; RESP 17; TEMP 36.8; O2SAT 95
--- NOTE | 2024-08-22 14:15 | PD.SURPROG ---
Documentation for date of: 08/22/24 Subjective Subjective Brief History: Yesterday pt underwent percutaneous drain placement, has had 218cc output which is light brown, mild nausea controlled with medications but did have BM. Had fever as recently as this am up to 101, WBC 18 Narrative: Having minimal pain but continuing to have nausea and poor appetite, last fever was 101 at 5pm yesterday, WBC 15 from 18 Exam Vital Signs Temp Pulse Resp BP Pulse Ox O2 Del Method O2 Flow Rate 98.2 F 80 17 134/78 H 95 Room Air 2 08/22/24 12:00 08/22/24 12:00 08/22/24 12:00 08/22/24 12:00 08/22/24 12:00 08/22/24 12:00 08/21/24 07:33 Constitutional Constitutional: no acute distress Routine Respiratory Exam Respiratory: Present no resp distress Routine Abdominal Exam Abdominal: Present soft and drain (RUQ drain with dark bilious output); Absent tenderness or distended Results Results: Laboratory Laboratory Narrative: Wound culture Klebsiella terry sensitive Laboratory results: results reviewed Results: Imaging CT scan - abdomen: report reviewed Assessment & Plan Plan 38M status post lap cheko 08/10 with findings concerning for gallbladder fossa abscess s/p percutaneous drain placement 08/20, with fever and nausea Phenergan PRN OK to have outside food Continue abx Strict I&O
[2024-08-22] MEDS: DEXTROSE 5%-0.45% NS 1,000 ML 50 ML IV (14:30)
[2024-08-22 16:00] VITALS: BP 116/61; PULSE 87; RESP 18; TEMP 36.3; O2SAT 94
[2024-08-22 20:00] VITALS: BP 122/77; PULSE 86; RESP 18; TEMP 36.8; O2SAT 91
[2024-08-22] MEDS: ACETAMINOPHEN 325 MG TABLET 650 MG PO (22:11)
[2024-08-23] VITALS: BP 129/77; PULSE 77; RESP 18; TEMP 36.2; O2SAT 93
[2024-08-23] MEDS: HEPARIN SOD INJ 5000 UNIT/ML VIAL SC ×2 (02:59→15:37)
[2024-08-23 04:00] VITALS: BP 134/81; PULSE 81; RESP 18; TEMP 36.1; O2SAT 94
[2024-08-23] MEDS: PROMETHAZINE INJ 25 MG in SODIUM CHLORIDE 0.9% 50 ML IV (04:11)
[2024-08-23] MEDS: KETOROLAC INJ 30 MG/ML VIAL 15 MG IVP (04:32)
[2024-08-23] MEDS: PIPER/TAZO 3.375 GM 3.375 GM/50 ML BAG IV (05:36)
[2024-08-23 06:22] LABS: Anion Gap 6 (7-16); BUN/Creatinine Ratio 13 Ratio (12-20); Blood Urea Nitrogen 10 mg/dL (9-23); Calcium 9.4 mg/dL (8.3-10.6); Carbon Dioxide 30.8 mMol/L (20.0-31.0); Chloride 95 mMol/L (98-107); Creatinine (Component) 0.8 mg/dL (0.6-1.3); Estimated Creatinine Clearance 125.5 mL/min (>60); Glucose 150 mg/dL (74-106); Osmolality,Calculated 266 (275-295); Potassium 3.4 mMol/L (3.4-5.1); Sodium 132 mMol/L (136-145); eGFR > 60 See Note
--- NOTE | 2024-08-23 06:38 | XR_ITS ---
Examination: Abdomen AP single view Technique: AP portable supine abdomen, single view Exam date and time: August 23, 2024 at 0717 hrs. Indications: Upper abdominal pain today. Findings: Significantly more prominent air distended small bowel loops Right upper abdomen drainage catheter satisfactory position No free air Intact osseous structures Impression: Severe small bowel ileus versus early small bowel obstruction, clinical correlation advised
[2024-08-23 08:00] VITALS: BP 121/66; PULSE 82; RESP 17; TEMP 36.7; O2SAT 92
[2024-08-23 10:04] VITALS: BMI 26.9
[2024-08-23 10:16] LABS: Basophils % (Auto) 0 % (0-2.5); Eosinophils # (Auto) 0.1 Thou/mm3 (0.0-0.5); Eosinophils % (Auto) 2 % (0-10); Hematocrit 35.5 % (41.0-53.0); Hemoglobin 12.3 g/dL (13.5-16.0); Immature Granulocytes % (Auto) 1 % (0-0); Immature Granulocytes Auto 0.05 Thou/mm3 (0.00-0.00); Lymphocytes # (Auto) 0.5 Thou/mm3 (1.0-4.8); Lymphocytes % (Auto) 6 % (10-50); Mean Corpuscular HGB Conc 34.6 g/dl (31.0-37.0); Mean Corpuscular Hemoglobin 28.2 pg (25.0-35.0); Mean Corpuscular Volume 81 fL (80-100); Monocytes # (Auto) 0.6 Thou/mm3 (0.0-0.8); Monocytes % (Auto) 8 % (0-12); Neutrophils # (Auto) 6.5 Thou/mm3 (1.8-7.7); Neutrophils % (Auto) 83 % (37-80); Nucleated Red Blood Cell % 0 /100 WBC (0); Platelet Count 390 Thou/mm3 (140-440); RDW Standard Deviation 35.8 fL (35.1-43.9); Red Blood Count 4.36 Miln/mm3 (4.50-5.90); White Blood Count 7.8 Thou/mm3 (3.8-10.6)
[2024-08-23] MEDS: DEXTROSE 5%-0.45% NS 1,000 ML 125 ML IV (10:29)
[2024-08-23] MEDS: ACETAMINOPHEN IVPB 1,000 MG/100 ML VIAL 250 MG IV (10:29)
[2024-08-23 10:30] LABS: Anion Gap 4 (7-16); BUN/Creatinine Ratio 14 Ratio (12-20); Blood Urea Nitrogen 10 mg/dL (9-23); Calcium 9.6 mg/dL (8.3-10.6); Carbon Dioxide 31.8 mMol/L (20.0-31.0); Chloride 98 mMol/L (98-107); Creatinine (Component) 0.7 mg/dL (0.6-1.3); Estimated Creatinine Clearance 143.4 mL/min (>60); Glucose 133 mg/dL (74-106); Magnesium 2.2 mg/dL (1.6-2.6); Osmolality,Calculated 269 (275-295); Phosphorous 4.6 mg/dL (2.4-5.1); Potassium 3.3 mMol/L (3.4-5.1); Sodium 134 mMol/L (136-145); eGFR > 60 See Note
--- NOTE | 2024-08-23 11:00 | PC.NURSE ---
NG tube attempted, pt did not tolerate well and requested to pull out NG tube, pt requesting to wait until he speaks with MD for another attempt.
[2024-08-23 12:00] VITALS: BP 120/70; PULSE 76; RESP 15; TEMP 36.4; O2SAT 91
[2024-08-23] MEDS: POTASSIUM CHL 10 mEq IVPB 10 MEQ/100 ML BAG 100 MEQ IV (14:14)
[2024-08-23] MEDS: POTASSIUM CHL 10 mEq IVPB 10 MEQ/100 ML BAG 75 MEQ IV ×2 (15:37→17:17)
[2024-08-23 16:00] VITALS: BP 119/64; PULSE 73; RESP 18; TEMP 36.6; O2SAT 94
[2024-08-23] MEDS: AMPICILLIN/SULBAC INJ 3 GM in SODIUM CHLORIDE 0.9% (P) 100 ML IV (19:16)
[2024-08-23 20:00] VITALS: BP 124/77; PULSE 74; RESP 17; TEMP 36.9; O2SAT 92
[2024-08-24] VITALS: BP 127/76; PULSE 78; RESP 17; TEMP 36.8; O2SAT 91
[2024-08-24] MEDS: AMPICILLIN/SULBAC INJ 3 GM in SODIUM CHLORIDE 0.9% (P) 100 ML IV ×5 (00:21→23:05)
[2024-08-24] MEDS: DEXTROSE 5%-0.45% NS 1,000 ML 50 ML IV ×2 (02:04→20:46)
[2024-08-24] MEDS: HEPARIN SOD INJ 5000 UNIT/ML VIAL SC ×2 (02:05→14:06)
[2024-08-24 04:00] VITALS: BP 119/64; PULSE 65; RESP 16; TEMP 36.1; O2SAT 94
[2024-08-24 07:43] VITALS: BP 124/73; PULSE 74; RESP 16; TEMP 36.3; O2SAT 94
[2024-08-24] MEDS: DOCUSATE SOD 100 MG CAPSULE PO (10:14)
[2024-08-24 12:00] VITALS: BP 96/76; PULSE 72; RESP 16; TEMP 36.3; O2SAT 94
--- NOTE | 2024-08-24 15:00 | PC.NURSE ---
pt states tube isnt draining correctly, Dr. Box at bedside to assess drainage
--- NOTE | 2024-08-24 15:10 | PD.SURPROG ---
Documentation for date of: 08/24/24 Subjective Subjective Brief History: Yesterday pt underwent percutaneous drain placement, has had 218cc output which is light brown, mild nausea controlled with medications but did have BM. Had fever as recently as this am up to 101, WBC 18 Narrative: Feeling better today, no nausea, tolerating regular diet, remaining afebrile, percutaneous drain 100cc/24h Exam Vital Signs Temp Pulse Resp BP Pulse Ox O2 Del Method O2 Flow Rate 97.3 F 72 16 96/76 94 L Room Air 2 08/24/24 12:00 08/24/24 12:00 08/24/24 12:00 08/24/24 12:00 08/24/24 12:00 08/24/24 12:00 08/21/24 07:33 Constitutional Constitutional: no acute distress Routine Respiratory Exam Respiratory: Present no resp distress Routine Abdominal Exam Abdominal: Present soft and drain (RUQ drain with bilious output); Absent tenderness or distended Assessment & Plan Plan 38M status post lap cheko 08/10 with findings concerning for gallbladder fossa abscess s/p percutaneous drain placement 08/20, gradually recovering Continue abx Strict I&O
--- NOTE | 2024-08-24 15:11 | PD.SURPROG ---
Documentation for date of: 08/23/24 Subjective Subjective Brief History: Yesterday pt underwent percutaneous drain placement, has had 218cc output which is light brown, mild nausea controlled with medications but did have BM. Had fever as recently as this am up to 101, WBC 18 Narrative: Having nausea this morning, xray showing ileus vs SBO but feeling better in the afternoon. Remaining afebrile with WBC now normal, percutaneous drain with 100cc/24h Exam Vital Signs Temp Pulse Resp BP Pulse Ox O2 Del Method O2 Flow Rate 97.3 F 72 16 96/76 94 L Room Air 2 08/24/24 12:00 08/24/24 12:00 08/24/24 12:00 08/24/24 12:00 08/24/24 12:00 08/24/24 12:00 08/21/24 07:33 Constitutional Constitutional: no acute distress Routine Respiratory Exam Respiratory: Present no resp distress Routine Abdominal Exam Abdominal: Present soft and drain (RUQ drain with bilious output); Absent tenderness or distended Results Results: Laboratory Laboratory results: results reviewed Assessment & Plan Plan 38M status post lap cheko 08/10 with findings concerning for gallbladder fossa abscess s/p percutaneous drain placement 08/20, with fever and nausea Switch zosyn to unasyn Strict I&O
[2024-08-24 16:00] VITALS: BP 126/73; PULSE 72; RESP 18; TEMP 36.7; O2SAT 95
[2024-08-24 20:00] VITALS: BP 128/77; PULSE 76; RESP 18; TEMP 36.9; O2SAT 93
[2024-08-25] VITALS: BP 121/62; PULSE 63; RESP 19; TEMP 36.6; O2SAT 93
[2024-08-25] MEDS: HEPARIN SOD INJ 5000 UNIT/ML VIAL SC ×2 (01:51→17:34)
[2024-08-25 04:00] VITALS: BP 122/69; PULSE 62; RESP 16; TEMP 36.3; O2SAT 95
[2024-08-25] MEDS: AMPICILLIN/SULBAC INJ 3 GM in SODIUM CHLORIDE 0.9% (P) 100 ML IV ×4 (05:02→23:55)
[2024-08-25 06:14] LABS: Basophils % (Auto) 1 % (0-2.5); Eosinophils # (Auto) 0.3 Thou/mm3 (0.0-0.5); Eosinophils % (Auto) 4 % (0-10); Hematocrit 35.6 % (41.0-53.0); Hemoglobin 12.2 g/dL (13.5-16.0); Immature Granulocytes % (Auto) 3 % (0-0); Immature Granulocytes Auto 0.15 Thou/mm3 (0.00-0.00); Lymphocytes # (Auto) 0.9 Thou/mm3 (1.0-4.8); Lymphocytes % (Auto) 16 % (10-50); Mean Corpuscular HGB Conc 34.3 g/dl (31.0-37.0); Mean Corpuscular Hemoglobin 28.4 pg (25.0-35.0); Mean Corpuscular Volume 83 fL (80-100); Monocytes # (Auto) 0.6 Thou/mm3 (0.0-0.8); Monocytes % (Auto) 10 % (0-12); Neutrophils # (Auto) 3.8 Thou/mm3 (1.8-7.7); Neutrophils % (Auto) 67 % (37-80); Nucleated Red Blood Cell % 0 /100 WBC (0); Platelet Count 269 Thou/mm3 (140-440); White Blood Count 5.6 Thou/mm3 (3.8-10.6)
[2024-08-25 06:46] LABS: Anion Gap 10 (7-16); BUN/Creatinine Ratio 14 Ratio (12-20); Blood Urea Nitrogen 10 mg/dL (9-23); Calcium 9.4 mg/dL (8.3-10.6); Carbon Dioxide 26.1 mMol/L (20.0-31.0); Chloride 102 mMol/L (98-107); Creatinine (Component) 0.7 mg/dL (0.6-1.3); Estimated Creatinine Clearance 143.4 mL/min (>60); Glucose 99 mg/dL (74-106); Magnesium 2.1 mg/dL (1.6-2.6); Osmolality,Calculated 274 (275-295); Phosphorous 4.4 mg/dL (2.4-5.1); Potassium 4.2 mMol/L (3.4-5.1); Sodium 138 mMol/L (136-145); eGFR > 60 See Note
[2024-08-25 07:22] VITALS: BP 124/84; PULSE 83; RESP 16; TEMP 36.3; O2SAT 93
[2024-08-25] MEDS: DOCUSATE SOD 100 MG CAPSULE PO (09:36)
[2024-08-25 11:55] VITALS: BP 123/69; PULSE 84; RESP 16; TEMP 36.3; O2SAT 93
[2024-08-25 15:30] VITALS: BP 122/68; PULSE 82; RESP 16; TEMP 36.3; O2SAT 93
--- NOTE | 2024-08-25 15:45 | XR_ITS ---
Examination: KUSHAL, hepatobiliary radioisotope scan. Date and time of exam: August 26, 2024 1345 hours INDICATIONS: Status post cholecystectomy, abdominal pain beginning last night Technique: 5.6 mCi of 99M Hepatolite administered. Serial imaging then obtained from immediate through 60 minutes. Findings: Radioisotope activity within the liver is reasonably homogenous. Activity in the gallbladder fossa, common bile duct small bowel activity noted Impression: Activity in the gallbladder fossa consistent with biliary leak
--- NOTE | 2024-08-25 15:50 | PD.SURPROG ---
Documentation for date of: 08/25/24 Subjective Subjective Brief History: Yesterday pt underwent percutaneous drain placement, has had 218cc output which is light brown, mild nausea controlled with medications but did have BM. Had fever as recently as this am up to 101, WBC 18 Narrative: Pain controlled, no nausea, had a BM this morning, remaining afebrile with normal WBC, drain had 60cc output past 24h Exam Vital Signs Temp Pulse Resp BP Pulse Ox O2 Del Method O2 Flow Rate 97.3 F 82 16 122/68 93 L Room Air 2 08/25/24 15:30 08/25/24 15:30 08/25/24 15:30 08/25/24 15:30 08/25/24 15:30 08/25/24 15:30 08/21/24 07:33 Constitutional Constitutional: no acute distress Routine Respiratory Exam Respiratory: Present no resp distress Routine Abdominal Exam Abdominal: Present soft and drain (RUQ drain with bilious output); Absent tenderness or distended Results Results: Laboratory Laboratory results: results reviewed Assessment & Plan Plan 38M status post lap cheko 08/10 with findings concerning for gallbladder fossa abscess s/p percutaneous drain placement 08/20, recovering well overall HIDA to reeval for leak given bilious nature of drainage Continue abx
--- NOTE | 2024-08-25 15:54 | PC.SS ---
Rounding: Percutaneous drain, strict I&Os
[2024-08-25 20:00] VITALS: BP 129/62; PULSE 70; RESP 16; TEMP 36.2; O2SAT 95
[2024-08-26] VITALS: BP 125/80; PULSE 68; RESP 17; TEMP 36.9; O2SAT 95
[2024-08-26] MEDS: HEPARIN SOD INJ 5000 UNIT/ML VIAL SC ×3 (01:55→20:10)
[2024-08-26 04:00] VITALS: BP 130/71; PULSE 74; RESP 18; TEMP 36.6; O2SAT 95
[2024-08-26] MEDS: AMPICILLIN/SULBAC INJ 3 GM in SODIUM CHLORIDE 0.9% (P) 100 ML IV ×4 (05:11→23:35)
[2024-08-26 06:07] LABS: Basophils % (Auto) 1 % (0-2.5); Eosinophils # (Auto) 0.2 Thou/mm3 (0.0-0.5); Eosinophils % (Auto) 4 % (0-10); Hematocrit 35.2 % (41.0-53.0); Immature Granulocytes % (Auto) 3 % (0-0); Lymphocytes # (Auto) 0.8 Thou/mm3 (1.0-4.8); Lymphocytes % (Auto) 13 % (10-50); Mean Corpuscular HGB Conc 34.1 g/dl (31.0-37.0); Mean Corpuscular Hemoglobin 28.3 pg (25.0-35.0); Mean Corpuscular Volume 83 fL (80-100); Monocytes # (Auto) 0.5 Thou/mm3 (0.0-0.8); Monocytes % (Auto) 9 % (0-12); Neutrophils # (Auto) 4.1 Thou/mm3 (1.8-7.7); Neutrophils % (Auto) 71 % (37-80); Nucleated Red Blood Cell % 0 /100 WBC (0); Platelet Count 413 Thou/mm3 (140-440); Red Blood Count 4.24 Miln/mm3 (4.50-5.90); White Blood Count 5.8 Thou/mm3 (3.8-10.6)
[2024-08-26 06:27] LABS: Anion Gap 8 (7-16); BUN/Creatinine Ratio 17 Ratio (12-20); Blood Urea Nitrogen 10 mg/dL (9-23); Calcium 9.1 mg/dL (8.3-10.6); Carbon Dioxide 27.6 mMol/L (20.0-31.0); Chloride 102 mMol/L (98-107); Creatinine (Component) 0.6 mg/dL (0.6-1.3); Estimated Creatinine Clearance 167.3 mL/min (>60); Glucose 105 mg/dL (74-106); Osmolality,Calculated 274 (275-295); Phosphorous 3.7 mg/dL (2.4-5.1); Potassium 3.8 mMol/L (3.4-5.1); Sodium 138 mMol/L (136-145); eGFR > 60 See Note
[2024-08-26 08:00] VITALS: BP 130/74; PULSE 79; RESP 16; TEMP 36.3; O2SAT 93
[2024-08-26] MEDS: DOCUSATE SOD 100 MG CAPSULE PO (08:54)
[2024-08-26 12:00] VITALS: BP 122/64; PULSE 76; RESP 16; TEMP 36.7; O2SAT 94
[2024-08-26 14:44] VITALS: BMI 26.9
[2024-08-26 16:00] VITALS: BP 119/76; PULSE 64; RESP 16; TEMP 36.8; O2SAT 92
--- NOTE | 2024-08-26 17:10 | PD.SURPROG ---
Documentation for date of: 08/26/24 Subjective Subjective Brief History: Yesterday pt underwent percutaneous drain placement, has had 218cc output which is light brown, mild nausea controlled with medications but did have BM. Had fever as recently as this am up to 101, WBC 18 Narrative: Pain controlled, no nausea, remaining afebrile with normal WBC, 100cc from RUQ drain past 24 hours, HIDA repeated indicating biliary leak Exam Vital Signs Temp Pulse Resp BP Pulse Ox O2 Del Method O2 Flow Rate 98.3 F 64 16 119/76 92 L Room Air 2 08/26/24 16:00 08/26/24 16:00 08/26/24 16:00 08/26/24 16:00 08/26/24 16:00 08/26/24 16:00 08/21/24 07:33 Constitutional Constitutional: no acute distress Routine Respiratory Exam Respiratory: Present no resp distress Routine Abdominal Exam Abdominal: Present soft and drain (RUQ drain with bilious output); Absent tenderness or distended Results Results: Laboratory Laboratory results: results reviewed Results: Imaging Imaging narrative: HIDTor reviewed Assessment & Plan Plan 38M status post lap cheko 08/10 with findings concerning for gallbladder fossa abscess s/p percutaneous drain placement 08/20, now s/p HIDA showing evidence of biliary leak. I spoke to Dr Swenson for consideration of ERCP; given that pt is clinically well with relatively minimal drainage he recommends observation for the next few days. If pt develops fever or increased drainage then at that time will pursue ERCP Strict I&O of drain output Continue abx Low fat diet
[2024-08-26 20:00] VITALS: BP 124/75; PULSE 86; RESP 18; TEMP 36.4; O2SAT 92
[2024-08-27] VITALS: BP 128/82; PULSE 76; RESP 18; TEMP 36.3; O2SAT 91
[2024-08-27 04:00] VITALS: BP 133/78; PULSE 70; RESP 18; TEMP 36.7; O2SAT 96
[2024-08-27] MEDS: AMPICILLIN/SULBAC INJ 3 GM in SODIUM CHLORIDE 0.9% (P) 100 ML IV ×2 (05:18→12:56)
[2024-08-27 06:28] LABS: Basophils % (Auto) 1 % (0-2.5); Eosinophils # (Auto) 0.2 Thou/mm3 (0.0-0.5); Eosinophils % (Auto) 3 % (0-10); Hematocrit 37.3 % (41.0-53.0); Hemoglobin 12.6 g/dL (13.5-16.0); Immature Granulocytes % (Auto) 2 % (0-0); Immature Granulocytes Auto 0.16 Thou/mm3 (0.00-0.00); Lymphocytes # (Auto) 0.8 Thou/mm3 (1.0-4.8); Lymphocytes % (Auto) 12 % (10-50); Mean Corpuscular HGB Conc 33.8 g/dl (31.0-37.0); Mean Corpuscular Volume 83 fL (80-100); Monocytes # (Auto) 0.6 Thou/mm3 (0.0-0.8); Monocytes % (Auto) 10 % (0-12); Neutrophils # (Auto) 4.8 Thou/mm3 (1.8-7.7); Neutrophils % (Auto) 73 % (37-80); Nucleated Red Blood Cell % 0 /100 WBC (0); Platelet Count 472 Thou/mm3 (140-440); RDW Standard Deviation 37.3 fL (35.1-43.9); White Blood Count 6.6 Thou/mm3 (3.8-10.6)
[2024-08-27 07:07] LABS: Anion Gap 6 (7-16); BUN/Creatinine Ratio 13 Ratio (12-20); Blood Urea Nitrogen 10 mg/dL (9-23); Calcium 9.8 mg/dL (8.3-10.6); Carbon Dioxide 29.7 mMol/L (20.0-31.0); Chloride 101 mMol/L (98-107); Creatinine (Component) 0.8 mg/dL (0.6-1.3); Estimated Creatinine Clearance 125.5 mL/min (>60); Glucose 94 mg/dL (74-106); Magnesium 2.2 mg/dL (1.6-2.6); Osmolality,Calculated 272 (275-295); Phosphorous 4.5 mg/dL (2.4-5.1); Sodium 137 mMol/L (136-145); eGFR > 60 See Note
[2024-08-27 08:00] VITALS: BP 134/77; PULSE 70; RESP 16; TEMP 36.4; O2SAT 93
[2024-08-27] MEDS: DOCUSATE SOD 100 MG CAPSULE PO (09:19)
[2024-08-27] MEDS: HEPARIN SOD INJ 5000 UNIT/ML VIAL SC (09:19)
[2024-08-27 12:00] VITALS: BP 112/78; PULSE 72; RESP 18; TEMP 36.2; O2SAT 93
--- NOTE | 2024-08-27 12:44 | PD.SURDS ---
Planned Discharge Date 08/27/24 DS: Providers Provider Date of admission: 08/20/24 06:13 Primary care physician: Flavio Goodwin MD Admitting Provider: Nieves Box MD Attending Provider on Admission: Nieves Box MD Attending Provider on DC: Nieves Box MD Discharging Provider: Nieves Box MD Diagnosis Discharge Diagnosis (1) Post-operative infection: Status: Acute (2) Bile leak, postoperative: Status: Acute Problem List Completed Was Problem List Reviewed/Reconciled?: Yes Hospital Course Brief History: 38M s/p lap cheko 08/10/24 who presented 08/20 with pain and fever, findings consistent with abscess in gallbladder fossa Patient underwent percutaneous drain placement on 08/20. Initially patient had fever and leukocytosis, however he has since improved and is now hemodynamically normal with normal white blood cell count. Patient remained hospitalized due to ongoing output from the biliary drain; on 08/26 he underwent HIDA concerning for a leak. I spoke to GI Dr. Swenson who recommended observation given the relatively low output from the drain and patient's overall clinical picture, and also conferred with a colleague Dr Mcdonnell who recommended the same. As patient is doing very well he is now appropriate for discharge home with drain in place, to follow-up as an outpatient Exam Vital Signs Temp Pulse Resp BP Pulse Ox O2 Del Method O2 Flow Rate 97.6 F 70 16 134/77 H 93 L Room Air 2 08/27/24 08:00 08/27/24 08:00 08/27/24 08:00 08/27/24 08:00 08/27/24 08:00 08/27/24 08:00 08/21/24 07:33 Constitutional Constitutional: no acute distress Routine Respiratory Exam Respiratory: Present no resp distress Routine Abdominal Exam Abdominal: Present soft and drain (Right upper quadrant drain with bilious output); Absent tenderness or distended Discharge Plan Plan Patient Disposition: HOME (Self Care) Patient condition on transfer: Stable Prescriptions/Referrals Prescriptions/Med Rec: New oxycodone-acetaminophen [Percocet] 5-325 mg tablet 1 tab PO Q6H MDD 6 tabs PRN (Reason: pain) Qty: 10 0RF amoxicillin-pot clavulanate 875-125 mg tablet 1 tab PO Q12H Qty: 6 0RF Referrals: Flavio Goodwin MD [Primary Care Provider] - Nieves Box MD [Physician] - (You will receive a phone call to confirm a follow-up appointment with me on Monday, September 09) Patient/Caregiver Discharge Instructions Other Discharge Activity Instructions:: Avoid lifting objects greater than 10 pounds for 6 weeks Empty the drain at the same time daily, measure and record the output If you develop worsening pain, fever, jaundice, nausea vomiting or difficulty with the drain please seek care in ER Education Materials: Closed Suction Drainage Tube Print Language: Armenian Stand Alone Forms: Whitney Award Info., Patient Portal Info Letter Discharge Order Discharge Orders: Discharge (Routine); Ordered 08/27/24 Ordered By: Nieves Box Results Results: Laboratory Laboratory results: results reviewed Results: Imaging Imaging narrative: HIDA reviewed CT scan - abdomen: report reviewed and image reviewed
--- NOTE | 2024-08-27 14:59 | PC.NURSE ---
discharge needs met, patient left with family in stable condition.
== END 2024-08-27 14:59 | disposition home or self-care (01) ==
LOC: SERX 05:19 → SERHOLD 07:20 → S3NX 09:40
PROVIDERS: Radiology Diagnostic Radiology; Admitting Provider Surgery; Emergency Provider Emergency Medicine; PCP Family Medicine; Visit Provider Surgery
DX: K81.0 Acute cholecystitis (principal); Z90.49 Acquired absence of other specified parts of digestive tract; K91.89 Other postprocedural complications and disorders of digestive system; T81.40XA Infection following a procedure, unspecified, initial encounter; Y83.8 Other surgical procedures as the cause of abnormal reaction of the patient, or of later complication, without mention of misadventure at the time of the procedure
CPT/HCPCS: 36415; 74018; 74176; 74177; 75989; 78227; 80048; 80053; 81001; 83605; 83690; 83735; 84100; 84145; 85025; 85610; 85730; 87040; 87070; 87077; 87081; 87086; 87102; 87116; 87186; 87205; 87206; 87811; 96361; 96365; 96375; 99285; A4649; A9537; J0131; J0295; J1643; J1885; J2270; J2405; J2543; J2550; J3010; J3480; J3490; J7030; J7042; J7050; Q9967; A9270; J1644

== ENCOUNTER 2024-09-05 13:53 | Emergency (ER) | payer MEDICAID, SELFPAY ==
[2024-09-05 14:16] VITALS: BP 140/69; PULSE 79; RESP 18; TEMP 37.2; O2SAT 98; BMI 26.9
--- NOTE | 2024-09-05 15:03 | EDNOTE_ITS ---
<Statement entered by Crissy Hanson MD - 09/11/24 17:55> As co-signing physician, I was present and available for consult prn. I concur with the plan and care as documented by the midlevel provider. ED Wound/Laceration-RME/HPI General Chief Complaint: Abdominal Pain Stated Complaint: Right upper quadrant abdominal drain Time Seen by Provider: 09/05/24 14:25 Source: patient Arrival date/time: 09/05/24 13:53 This is a 38-year-old male who presented to the emergency department for concerns of his percutaneous drainage. According to the patient he has had this percutaneous drainage inserted for on 08/20/2024. He endorses that on 08/10/2024 he had an acute: choleCystectomy, in which he developed an abscess later on requiring the drainage tube. He was worried today because the drainage was not draining. Reports the drainage has decreased in the last 4 days. And did not know if that was expected. Otherwise the patient has no concerns no abdominal pain no fever no nausea no vomiting. He does report he has an appointment on September [address] Conklin. (g. surgeon) Mode of arrival: ambulatory Related Data Previous Rx's ?Medication ?Instructions ?Recorded amoxicillin 875 mg-potassium 1 tab PO Q12H #6 tabs 08/27/24 clavulanate 125 mg tablet oxycodone-acetaminophen 5 mg-325 1 tab PO Q6H PRN pain #10 tabs 08/27/24 mg tablet (Percocet) Allergies Allergy/AdvReac Type Severity Reaction Status Date / Time No Known Allergies Allergy Verified 08/20/24 02:24 Review of Systems Review of Systems Systems Reviewed: All systems reviewed, normal except as documented Narrative Review of Systems: Gen: No fever, no chills, no weight loss EYES: No discharge, no visual changes, no pain HEENT: No ear pain, no congestion, no sore throat PULM: No shortness of breath, no cough, no congestion CV: No chest pain, no dyspnea on exertion, no palpitations GI: No nausea, no vomiting, no diarrhea, no pain, no constipation : No frequency, no urgency,? no dysuria Musc/skel: No joint pain, no back pain Skin: No rash? Psyc: No hallucinations, no depression Heme/Lymph: No easy bleeding or bruising tendencies Neuro: No weakness, no headache ED Exam Narrative Physical exam: General: Sittiing in Exam table in no acute distress, answering questions appropriately HENT: normocephalic, atraumatic, EOMI, PERRLA, moist mucous membranes Chest: chest wall is nontender Cardiac: regular rate and rhythm, normal S1 and S2, no murmurs, rubs, or gallops, capillary refill ?2 seconds Pulmonary: clear to auscultation bilaterally, no wheezing, crackles, or rhonchi Abdominal: active bowel sounds, soft, nontender, nondistended, there is a visible intact percutaneous catheter on the right upper quadrant. No signs of infection. No tenderness to abdomen. Neuro: A&OX3, CN II-XII intact, sensation grossly intact bilaterally in UE and LE. Skin: no rashes, no ecchymosis Ext: no lower extremity edema Course Quality Measures none Vital Signs Vital signs: Vital Signs Temperature 99 F 09/05/24 14:16 Pulse Rate 79 09/05/24 14:16 Respiratory Rate 18 09/05/24 14:16 Blood Pressure 140/69 H 09/05/24 14:16 Pulse Oximetry (%) 98 09/05/24 14:16 Oxygen Delivery Method Room Air 09/05/24 14:16 Wound / Laceration MDM Narrative MDM Narrative:: After reviewing the patient's long history and complication after his acute cholecystitis on 08/10/2024. I went ahead and called Dr. Conklin. Dr. Conklin reported that it is expected that drainage to decrease over time. If the patie nt is asymptomatic and is feeling well can be discharged to keep his appointment on Monday with her. Patient again denied any changes in condition, no fever no nausea no vomiting no chills or rigors. And no acute abdominal pain. Patient agrees with plan to follow-up with his general surgeon on Monday ER precautions given Patient data External records reviewed:: [facility] previous records Clinical information provided by:: patient and family Social determinants that could affect healthcare access:: none Patient has the following chronic illnesses:: none How is presenting disease/condition affected by chronic disease/condition?: no chronic disease Evaluation data The following diagnostics were reviewed and interpreted by me:: other (specify) Lab and/or radiology exams considered but not ordered:: none Interpretation Summary: none Medications / Prescriptions Medications or Prescriptions considered but not ordered:: none Medication administrations:: none Consultations Consultation(s) initiated? (list below): No Diagnosis Wound Differential Diagnosis: other (Assessment of wound, wound care,) Most likely diagnosis given after review of the tests above:: Assessment from wound wound care. Admission Indicated Admission indicated?: not indicated Explain why admission is indicated or not indicated:: none Admission Request Was there a request for admission?: No Disposition Plan Disposition Plan: Discharge Discharge Attestation Discharge Attestation: The patient and all family members were given an opportunity to ask questions and understood the discharge instructions. Discharge instructions specifically effects, indications for sooner follow up or return to the emergency department, and the expected course of current diagnosis. Patient condition: Stable Discharge Plan Plan Patient Disposition: HOME (Self Care) Patient condition on transfer: Stable Prescriptions/Referrals Prescriptions/Med Rec: No Action oxycodone-acetaminophen [Percocet] 5-325 mg tablet 1 tab PO Q6H MDD 6 tabs PRN (Reason: pain) Qty: 10 0RF amoxicillin-pot clavulanate 875-125 mg tablet 1 tab PO Q12H Qty: 6 0RF Referrals: No Primary/Family,Physician [Primary Care Provider] - In 1 week Problem List Clinical Impression: Bile leak, postoperative, Drainage from surgical wound Patient/Caregiver Discharge Instructions Additional Instructions: Keep your appointment with Dr. Conklin on September 09. If you are to develop any fever chills abdominal pain nausea or vomiting please return to the emergency department as soon as possible. Print Language: Vietnamese Stand Alone Forms: Whitney Award Info., Patient Portal Info Letter BILLY/YU Supervising Physician GERTRUDIS Supervising Physician: Rell
== END 2024-09-05 15:22 | disposition home or self-care (01) ==
PROVIDERS: Emergency Provider Emergency Medicine
DX: K91.89 Other postprocedural complications and disorders of digestive system (principal); Y82.8 Other medical devices associated with adverse incidents
CPT/HCPCS: 80053; 83690; 85025; 99283

== ENCOUNTER 2024-09-09 14:16 | Outpatient (AMB) | payer MEDICAID, SELFPAY ==
[2024-09-09 14:22] VITALS: BP 126/79; PULSE 69; RESP 16; TEMP 36.7; O2SAT 96; BMI 25.0
--- NOTE | 2024-09-09 14:22 | PD.GSCLVISIT ---
Vital Signs - [facility] 09/09/24 14:22 Height 1.72 m Height Method Stated Weight 74.021 kg Weight Measurement Method Standing Scale BMI 25.0 BP 126/79 Blood Pressure Source Automatic Cuff Blood Pressure Location Left Upper Arm Position Sitting Respiration 16 Pulse 69 Pulse Source Monitor Temp 98.1 F Temp Source Temporal Artery Scan Pulse Oximetry (%) 96 Oxygen Delivery Method Room Air Med/Allergies Allergies & Medications Allergies No Known Allergies Allergy (Verified 09/09/24 14:23) Medication Reconciliation amoxicillin 875 mg-potassium clavulanate 125 mg tablet 1 tab PO Q12H #6 tabs 08/27/24 [Rx Confirmed 09/09/24] oxycodone-acetaminophen 5 mg-325 mg tablet (Percocet) 1 tab PO Q6H PRN pain #10 tabs 08/27/24 [Rx Confirmed 09/09/24] MA Intake Visit Data Collection New Patient or Established: Established Patient (seen at [facility] within 3 years) Seen by Clinical Staff ONLY (RN/MA): No Reason for Visit:: F/U cholecystectomy Pain Present Currently: No Worship Director Required: Yes PCP or OBGYN visit in last 3 months: Yes Smoking Status Smoking Status: Never smoker Immunization / Flu Flu Vaccine in the Last 12 Months: No Flu Vaccine Exclusion Criteria: Refused by Patient Past Medical History Past Medical History NEUROLOGIC: Negative Seizures CARDIAC: Positive Hypertension; Negative Cardiac Disorders or Congestive Heart Failure RESPIRATORY: Negative Chronic Obstructive Pulmonary Disease (COPD) or Asthma GASTROINTESTINAL: Positive Gall Bladder Disease GENITOURINARY: Negative Renal Disease ENDOCRINE: Negative Diabetes Mellitus Type 1 or Diabetes Mellitus Type 2 HEMATOLOGIC: Negative Sickle Cell Disease OTHER HISTORY: Negative Blood Transfusions, Blood Transfusion Reaction or Anesthesia Reactions Surgical History SURGICAL: Positive Abdominal Surgery Social History SMOKING STATUS: Smoking status: Never smoker ALCOHOL FREQUENCY: Alcohol Intake Frequency: holidays/special occasions only HOUSING: Housing: House LIVES WITH: Lives With: Family HPI HPI Narrative Spoke to pt with in-person hearing healthcare practitioner 38M s/p laparoscopic cholecystectomy 08/10, course complicated by biliary leak s/p percutaneous drain placement 08/20 here for planned follow up. Pt has been recording outputs daily and has not had any output for the past few days; before that it was <10cc/24h. He denies any pain, nausea/vomiting or fever; is overall feeling well and eating well with regular bowel and bladder function. He has not noticed any jaundice ROS Review of Systems Systems Reviewed: All systems reviewed, normal except as documented Objective/Exam General General Appearance: alert, cooperative and well groomed Resp Respiratory exam: Absent respiratory distress Abdominal Abdominal exam: Present soft, incision (c/d/i, no erythema, no fluctuance or tenderness) and other (MIRIAN with minimal serous output); Absent distention or tenderness Assessment & Plan Diagnosis / Problem List (1) Bile leak, postoperative: Status: Acute Plan 38M s/p lap cheko 08/10 with course complicated by biliary leak s/p percutaneous drain placement 08/20, with subsequent low output indicating that the leak would likely self-resolve, now with scant output and feeling very well. I conferred with my colleague who recommended evaluating CBC/CMP before drain removal, and explained to pt that if there is any lab abnormality such as elevated bilirubin I will investigate further before removing MIRIAN. Pt expressed understanding and is agreeable with this plan Orders: Orders CBC 1 Week Bilirubin,Direct 1 Week Liver Panel 1 Week Office Procedures GNS Level of Care Nursing/Assessment Patient Status: Established Patient Nursing Assessment/Reassesment: Medication Reconciliation, Update PMH in EMR and Vital Signs Coordination of Care: Complex Care and Chronic Disease 1-5, Education Complex Pt/Fam, 1 Ins Authorization and Staff clarify orders Special Needs: Language special needs Established Patient Charge Established Patient Point Assignment: 100 Established Patient Point Charge: EP Level 3 (80-115) Patient Portal Questionaires Social History Living Situation History Housing: House Tobacco History Smoking Status: Never smoker Alcohol History Alcohol Intake Frequency: holidays/special occasions only Review of Systems Report any current symptoms Only answer those that you have currently: Past Medical History Past Medical History Have you ever been diagnosed with any of the following: Neurological Problems Seizures: No Cardiology Problems Congestive Heart Failure: No Hypertension: Yes Respiratory Problems Chronic Obstructive Pulmonary Disease (COPD): No Asthma: No Stomache/Intestinal Problems Gall Bladder Disease: Yes Genital/Urinary Problems Renal Disease: No Endocrine Problems Diabetes Mellitus Type 1: No Diabetes Mellitus Type 2: No Blood Problems Sickle Cell Disease: No Other Problems Blood Transfusions: No Blood Transfusion Reaction: No Anesthesia Reactions: No
== END 2024-09-09 14:53 | disposition home or self-care (01) ==
LOC: HODSRG 14:16
PROVIDERS: PCP Family Medicine; Referring Provider Family Medicine; Supervising Provider Surgery; Visit Provider Surgery
DX: K91.89 Other postprocedural complications and disorders of digestive system (principal)
CPT/HCPCS: 99213; G0463

== ENCOUNTER 2024-09-09 23:11 | Emergency (ER) | payer MEDICAID, SELFPAY ==
[2024-09-09 23:12] VITALS: BMI 25.5
[2024-09-09 23:27] VITALS: BP 153/87; PULSE 62; RESP 18; TEMP 36.6; O2SAT 98
--- NOTE | 2024-09-09 23:39 | PD.EDRME ---
Rapid Medical Screening Exam RME Arrival date/time: 09/09/24 23:11 38-year-old male past medical history of cholecystectomy presents emergency department reporting biliary drain that was placed several days ago became dislodged today and reports is almost completely out. Patient reports seeing Dr. Conklin general surgeon who is managing drain and was told liver enzyme studies were going to be repeated and possibly have the drain removed due to low output. Chief Complaint: Wound Recheck / Suture Removal Time Seen by Provider: 09/09/24 23:14 Vital signs: Vital Signs Temperature 98 F 09/09/24 23:27 Pulse Rate 62 09/09/24 23:27 Respiratory Rate 18 09/09/24 23:27 Blood Pressure 153/87 H 09/09/24 23:27 Pulse Oximetry (%) 98 09/09/24 23:27 Oxygen Delivery Method Room Air 09/09/24 23:27 Vital signs reviewed by provider: Yes
[2024-09-10 00:13] LABS: Basophils % (Auto) 1 % (0-2.5); Eosinophils # (Auto) 0.2 Thou/mm3 (0.0-0.5); Eosinophils % (Auto) 5 % (0-10); Hematocrit 43.2 % (41.0-53.0); Hemoglobin 14.4 g/dL (13.5-16.0); Immature Granulocytes % (Auto) 0 % (0-0); Immature Granulocytes Auto 0.01 Thou/mm3 (0.00-0.00); Lymphocytes # (Auto) 1.6 Thou/mm3 (1.0-4.8); Lymphocytes % (Auto) 35 % (10-50); Mean Corpuscular HGB Conc 33.3 g/dl (31.0-37.0); Mean Corpuscular Hemoglobin 27.8 pg (25.0-35.0); Mean Corpuscular Volume 83 fL (80-100); Monocytes # (Auto) 0.6 Thou/mm3 (0.0-0.8); Monocytes % (Auto) 13 % (0-12); Neutrophils # (Auto) 2.1 Thou/mm3 (1.8-7.7); Neutrophils % (Auto) 46 % (37-80); Nucleated Red Blood Cell % 0 /100 WBC (0); Platelet Count 331 Thou/mm3 (140-440); RDW Standard Deviation 38.4 fL (35.1-43.9); Red Blood Count 5.18 Miln/mm3 (4.50-5.90); White Blood Count 4.5 Thou/mm3 (3.8-10.6)
[2024-09-10 00:27] LABS: Collection Type, Urine Clean Catch; Squamous Epithelial Cell,Urine 0 /hpf (0-5)
[2024-09-10 00:42] LABS: Bilirubin,Urine Negative (Negative); Blood,Urine Negative (Negative); Clarity,Urine Clear (Clear/Hazy); Color,Urine Colorless (Lt Yel-Yel); Culture Indicated,Urine Not Indicated; Glucose, Urine Negative (Negative); Ketones,Urine Negative (Negative); Leukocyte Esterase,Urine Negative (Negative); Nitrite,Urine Negative (Negative); Protein,Urine Negative (Neg - Trace); RBC,Urine 1 /hpf (0-3); Specific Gravity,Urine 1.005 (1.001-1.035); Urobilinogen,Urine Negative mg/dL (0.0-1.0); WBC,Urine < 1 /hpf (0-5)
[2024-09-10 01:16] LABS: Alanine Aminotransferase 42 U/L (10-49); Albumin, Serum 4.8 gm/dL (3.5-5.0); Albumin/Globulin Ratio 1.4 (1.2-2.2); Alkaline Phosphatase 150 U/L (46-116); Anion Gap 7 (7-16); Aspartate Amino Transferase 30 U/L (0-34); BUN/Creatinine Ratio 15 Ratio (12-20); Bilirubin,Total 0.6 mg/dL (0.3-1.2); Blood Urea Nitrogen 12 mg/dL (9-23); Calcium 10.8 mg/dL (8.3-10.6); Calcium (Corrected) 10.8 mg/dL (8.5-10.1); Carbon Dioxide 30.4 mMol/L (20.0-31.0); Chloride 101 mMol/L (98-107); Creatinine (Component) 0.8 mg/dL (0.6-1.3); Estimated Creatinine Clearance 115.2 mL/min (>60); Globulin 3.4 gm/dL (2.3-3.5); Glucose 98 mg/dL (74-106); Lipase 37 U/L (12-53); Osmolality,Calculated 275 (275-295); Potassium 3.8 mMol/L (3.4-5.1); Sodium 138 mMol/L (136-145); Total Protein 8.2 gm/dL (5.7-8.2); eGFR > 60 See Note
--- NOTE | 2024-09-10 01:47 | EDNOTE_ITS ---
ED Wound/Laceration-RME/HPI General Chief Complaint: Wound Recheck / Suture Removal Stated Complaint: MIRIAN DRAIN GOT PULLED Time Seen by Provider: 09/09/24 23:14 Arrival date/time: 09/09/24 23:11 38-year-old male past medical history of cholecystectomy presents emergency department reporting biliary drain that was placed several days ago became dislodged today and reports is almost completely out. Patient reports seeing Dr. Conklin general surgeon who is managing drain and was told liver enzyme studies were going to be repeated and possibly have the drain removed due to low output. Limitations: no limitations RME / HPI RME / HPI narrative: 09/09/24 23:11 38-year-old male past medical history of cholecystectomy presents emergency department reporting biliary drain that was placed several days ago became dislodged today and reports is almost completely out. Patient reports seeing Dr. Conklin general surgeon who is managing drain and was told liver enzyme studies were going to be repeated and possibly have the drain removed due to low output. Related Data Previous Rx's ?Medication ?Instructions ?Recorded amoxicillin 875 mg-potassium 1 tab PO Q12H #6 tabs 08/27/24 clavulanate 125 mg tablet oxycodone-acetaminophen 5 mg-325 1 tab PO Q6H PRN pain #10 tabs 08/27/24 mg tablet (Percocet) Allergies Allergy/AdvReac Type Severity Reaction Status Date / Time No Known Allergies Allergy Verified 09/09/24 23:12 Review of Systems Review of Systems Systems Reviewed: All systems reviewed, normal except as documented Constitutional Constitutional: Reports system reviewed and no additional complaints, except as documented, Denies body ache(s), Denies chills and Denies fever(s) Eyes Eyes: Reports system reviewed and no additional complaints, except as documented and Denies change in vision ENT Ears, Nose, Mouth, and Throat: Reports system reviewed and no additional complaints, except as documented, Denies disequilibrium, Denies dizziness, Denies sore throat and Denies vertigo Cardiovascular Cardiovascular: Reports system reviewed and no additional complaints, except as documented, Denies chest pain and Denies dyspnea Respiratory Respiratory: Reports system reviewed and no additional complaints, except as documented, Denies chest congestion, Denies cough and Denies dyspnea Gastrointestinal Gastrointestinal: Reports system reviewed and no additional complaints, except as documented, Denies abdominal pain, Denies nausea and Denies vomiting Musculoskeletal Musculoskeletal: Reports system reviewed and no additional complaints, except as documented, Denies abnormal gait and Denies arthralgias Integumentary/Breasts Skin/Breast: Reports system reviewed and no additional complaints, except as documented, Denies erythema, Denies rash and Reports wounds (Dislodgment of MIRIAN drain) Neurologic Neurologic: Reports system reviewed and no additional complaints, except as documented, Denies abnormal gait, Denies disequilibrium, Denies dizziness and Denies vertigo Past Medical History Past Medical History NEUROLOGIC: Negative Seizures CARDIAC: Positive Hypertension; Negative Cardiac Disorders or Congestive Heart Failure RESPIRATORY: Negative Chronic Obstructive Pulmonary Disease (COPD) or Asthma GASTROINTESTINAL: Positive Gall Bladder Disease GENITOURINARY: Negative Renal Disease ENDOCRINE: Negative Diabetes Mellitus Type 1 or Diabetes Mellitus Type 2 HEMATOLOGIC: Negative Sickle Cell Disease OTHER HISTORY: Negative Blood Transfusions, Blood Transfusion Reaction or Anesthesia Reactions Surgical History SURGICAL: Positive Abdominal Surgery Social History SMOKING STATUS: Never smoker ED Exam General Limitations: Present no limitations General appearance: Present alert and in no apparent distress Head Head exam: Present atraumatic Eye Eye exam: Present normal appearance, PERRL and EOMI ENT ENT exam: Present normal exam, normal oropharynx and mucous membranes moist Neck Neck exam: Present normal inspection, full ROM and trachea midline Chest Chest inspection: Present normal inspection and symmetric chest wall rise Respiratory Respiratory exam: Present normal lung sounds bilaterally Cardiovascular Cardiovascular exam: Present regular rate, normal rhythm and normal heart sounds Abdominal Exam Abdominal exam: Present soft and normal bowel sounds Extremities Exam Extremities exam: Present normal inspection and full ROM Back Exam Back exam: Present normal inspection and full ROM Neurological Exam Neurological exam: Present alert, oriented X3 and CN II-XII intact Psychiatric Psychiatric exam: Present normal affect and normal mood Skin Skin exam: Present warm, dry and normal color Expanded Skin Exam Body image: 2 1. Small incision from MIRIAN drain insertion site with 1 suture that was removed. Course Quality Measures none Orders Category Date Time Status CBC Stat Lab 09/09/24 23:53 Completed CMP [Comprehensive Metabolic Panel] Stat Lab 09/09/24 23:53 Completed Lipase Stat Lab 09/09/24 23:53 Completed Urinalysis, C/S if Indicated Stat Lab 09/10/24 00:22 Completed Vital Signs Vital signs: Vital Signs Temperature 98 F 09/09/24 23:27 Pulse Rate 62 09/09/24 23:27 Respiratory Rate 18 09/09/24 23:27 Blood Pressure 153/87 H 09/09/24 23:27 Pulse Oximetry (%) 98 09/09/24 23:27 Oxygen Delivery Method Room Air 09/09/24 23:27 98% room air within normal limits Wound / Laceration MDM Narrative MDM Narrative:: 38-year-old male past medical history of cholecystectomy presents emergency department reporting biliary drain that was placed several days ago became dislodged today and reports is almost completely out. Patient reports seeing Dr. Conklin general surgeon who is managing drain and was told liver enzyme studies were going to be repeated and possibly have the drain removed due to low output. CBC unremarkable for any leukocytosis or anemia. CMP no elevated LFTs or gross electro abnormalities. On exam MIRIAN drain was visibly out and held on by [address] Conklin general surgeon called recommends removal of MIRIAN drain and follow-up in her office upon discharge. MIRIAN drain successfully removed as well as 1 suture insertion site cleansed with normal saline and dry dressing applied and secured with Tegaderm. Patient given supplies for dressing changes. Insertion site is not have any signs of infection or purulent drainage at this time. Patient instructed to follow-up with Dr. Conklin's office upon discharge and return to emergency department for any worsening symptoms or as needed. Patient data External records reviewed:: [facility] previous records Clinical information provided by:: patient Social determinants that could affect healthcare access:: none Patient has the following chronic illnesses:: See chart How is presenting disease/condition affected by chronic disease/condition?: u neffected by Evaluation data The following diagnostics were reviewed and interpreted by me:: lab results and radiology exam(s) Lab and/or radiology exams considered but not ordered:: Ordered Interpretation Summary: Department Medications / Prescriptions Medications or Prescriptions considered but not ordered:: N/A Medication administrations:: N/A Consultations Consultation(s) initiated? (list below): Yes Consultation #1 (Physician, Specialty, Details): Dr. Box Diagnosis Wound Differential Diagnosis: abscess Most likely diagnosis given after review of the tests above:: Biliary drain displacement Admission Indicated Admission indicated?: not indicated Admission Request Was there a request for admission?: No Disposition Plan Disposition Plan: Discharge Discharge Attestation Discharge Attestation: The patient and all family members were given an opportunity to ask questions and understood the discharge instructions. Discharge instructions specifically effects, indications for sooner follow up or return to the emergency department, and the expected course of current diagnosis. Patient condition: Stable Discharge Plan Plan Patient Disposition: HOME (Self Care) Disposition Comment: Stable Prescriptions/Referrals Prescriptions/Med Rec: No Action oxycodone-acetaminophen [Percocet] 5-325 mg tablet 1 tab PO Q6H MDD 6 tabs PRN (Reason: pain) Qty: 10 0RF amoxicillin-pot clavulanate 875-125 mg tablet 1 tab PO Q12H Qty: 6 0RF Referrals: Flavio Goodwin MD [Primary Care Provider] - In 1 week Nieves Box MD [Physician] - In 1 week Problem List Clinical Impression: Biliary drain displacement Patient/Caregiver Discharge Instructions Discharge Activity: activity as tolerated Additional Instructions: Keep wound covered with dry dressing. May wash with warm water and soap. Follow-up with Dr. Conklin in her office within 1 week. Return to emergency department for any worsening symptoms or as needed. Print Language: Turkish Stand Alone Forms: Whitney Award Info., Patient Portal Info Letter PA/YU Supervising Physician BILLY/YU Supervising Physician: Dr. Husain
[2024-09-10 02:02] VITALS: BP 138/76; PULSE 70; RESP 18; TEMP 36.8; O2SAT 99
== END 2024-09-10 02:02 | disposition home or self-care (01) ==
PROVIDERS: Emergency Provider Emergency Medicine; PCP Family Medicine
DX: T85.520A Displacement of bile duct prosthesis, initial encounter (principal); Y84.8 Other medical procedures as the cause of abnormal reaction of the patient, or of later complication, without mention of misadventure at the time of the procedure; Z90.49 Acquired absence of other specified parts of digestive tract
CPT/HCPCS: 36415; 80053; 81001; 83690; 85025; 99283

== ENCOUNTER 2024-09-19 13:54 | Outpatient (AMB) | payer MEDICAID, SELFPAY ==
[2024-09-19 14:00] VITALS: BP 127/83; PULSE 64; RESP 18; TEMP 36.3; O2SAT 97; BMI 25.4
--- NOTE | 2024-09-19 14:00 | GSCOFFNT_ITS ---
Vital Signs - [facility] 09/19/24 14:00 Height 1.7 m Height Method Stated Weight 73.68 kg Weight Measurement Method Standing Scale BMI 25.4 BP 127/83 Blood Pressure Source Automatic Cuff Blood Pressure Location Left Upper Arm Position Sitting Respiration 18 Pulse 64 Pulse Source Monitor Temp 97.3 F Temp Source Temporal Artery Scan Pulse Oximetry (%) 97 Oxygen Delivery Method Room Air Med/Allergies Allergies & Medications Allergies No Known Allergies Allergy (Verified 09/19/24 14:01) Medication Reconciliation amoxicillin 875 mg-potassium clavulanate 125 mg tablet 1 tab PO Q12H #6 tabs 08/27/24 [Rx Confirmed 09/19/24] oxycodone-acetaminophen 5 mg-325 mg tablet (Percocet) 1 tab PO Q6H PRN pain #10 tabs 08/27/24 [Rx Confirmed 09/19/24] MA Intake Visit Data Collection New Patient or Established: Established Patient (seen at [facility] within 3 years) Seen by Clinical Staff ONLY (RN/MA): No Reason for Visit:: APPENDECTOMY Pain Present Currently: No Instrument Lens Inspector Required: Yes PCP or OBGYN visit in last 3 months: Yes Hx Now: No Do You Feel Safe at Home: Yes Authorities Contacted: N/A Smoking Status Smoking Status: Never smoker Immunization / Flu Flu Vaccine in the Last 12 Months: No Flu Vaccine Exclusion Criteria: Refused by Patient Past Medical History Past Medical History NEUROLOGIC: Negative Seizures CARDIAC: Positive Hypertension; Negative Cardiac Disorders or Congestive Heart Failure RESPIRATORY: Negative Chronic Obstructive Pulmonary Disease (COPD) or Asthma GASTROINTESTINAL: Positive Gall Bladder Disease GENITOURINARY: Negative Renal Disease ENDOCRINE: Negative Diabetes Mellitus Type 1 or Diabetes Mellitus Type 2 HEMATOLOGIC: Negative Sickle Cell Disease OTHER HISTORY: Negative Blood Transfusions, Blood Transfusion Reaction or Anesthesia Reactions Surgical History SURGICAL: Positive Abdominal Surgery Social History SMOKING STATUS: Smoking status: Never smoker ALCOHOL FREQUENCY: Alcohol Intake Frequency: holidays/special occasions only HOUSING: Housing: House LIVES WITH: Lives With: Family HPI HPI Narrative 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 After last visit pt went to ER because his drain fell out; he had labs done at that time as well as another set which I had ordered both showing normal WBC and bilirubin, alk phos 150. Pt reports he has been feeling well with no pain, no nausea, no fever, he is eating well and having regular BMs, and gradually resuming his usual activities ROS Review of Systems Systems Reviewed: All systems reviewed, normal except as documented Objective/Exam General General Appearance: alert, cooperative and well groomed Resp Respiratory exam: Absent respiratory distress Abdominal Abdominal exam: Present soft and incision (c/d/i, no erythema, no fluctuance or tenderness); Absent distention or tenderness Results Labs reviewed Assessment & Plan Diagnosis / Problem List (1) Bile leak, postoperative: Status: Acute Assessment & Plan: 38M s/p laparoscopic cholecystectomy 08/10, course complicated by biliary leak s/p percutaneous drain placement 08/20, which has since fallen out but clinically pt shows signs of healing well with no signs of ongoing leak. I explained since he is now 6 weeks postop he can resume all usual activities and gave return precautions. All questions were answered and pt expressed understanding Office Procedures GNS Level of Care Nursing/Assessment Patient Status: Established Patient Nursing Assessment/Reassesment: Medication Reconciliation, Update PMH in EMR and Vital Signs Coordination of Care: Complex Care and Chronic Disease 1-5, Consent,records obtained, informed consent, Education Simp Pt/Fam, Results/Orders obtained and Staff clarify orders Special Needs: Language special needs Established Patient Charge Established Patient Point Assignment: 90 Established Patient Point Charge: EP Level 3 (80-115) Patient Portal Questionaires Social History Living Situation History Housing: House Tobacco History Smoking Status: Never smoker Alcohol History Alcohol Intake Frequency: holidays/special occasions only Domestic Abuse History Do You Feel Safe at Home: Yes Review of Systems Report any current symptoms Only answer those that you have currently: Past Medical History Past Medical History Have you ever been diagnosed with any of the following: Neurological Problems Seizures: No Cardiology Problems Congestive Heart Failure: No Hypertension: Yes Respiratory Problems Chronic Obstructive Pulmonary Disease (COPD): No Asthma: No Stomache/Intestinal Problems Gall Bladder Disease: Yes Genital/Urinary Problems Renal Disease: No Endocrine Problems Diabetes Mellitus Type 1: No Diabetes Mellitus Type 2: No Blood Problems Sickle Cell Disease: No Other Problems Blood Transfusions: No Blood Transfusion Reaction: No Anesthesia Reactions: No
== END 2024-09-19 14:20 | disposition home or self-care (01) ==
LOC: HODSRG 13:54
PROVIDERS: PCP Family Medicine; Referring Provider Family Medicine; Supervising Provider Surgery; Visit Provider Surgery
DX: K91.89 Other postprocedural complications and disorders of digestive system (principal); Y84.9 Medical procedure, unspecified as the cause of abnormal reaction of the patient, or of later complication, without mention of misadventure at the time of the procedure
CPT/HCPCS: 99213; G0463